=== PATIENT | female | born 1995 | race African-American/Black ===

== ENCOUNTER 2021-03-19 12:59 | Inpatient (IN) ==
[2021-03-19 13:53] LABS: Bilirubin,Urine Negative (Negative); Blood, Urine Large mg/dL (Negative); Glucose,Urine (UA) Negative (Negative); Hyaline Casts,Urine 4 /LPF (0-3); Ketones,Urine Negative (Negative); Mucus,Urine Occasional /LPF (Occasional); Nitrite,Urine Negative (Negative); Protein,Urine >=500 MG/DL; RBC,Urine 95 /HPF (0-4); Squamous Epithelial Cell,Urine Occasional /HPF (0-10); Urine Appearance Slightly Hazy (Clear); Urine Color Yellow (Yellow); Urine Specific Gravity 1.013 (1.001-1.035); Urine Urobilinogen < 2.0 EU/DL (0.2-1.0)
[2021-03-19] MEDS ORDERED: SODIUM CHLORIDE 0.9% 1,000 ML IV STA (13:56)
[2021-03-19] MEDS ORDERED: ONDANSETRON 4 MG/2 ML VIAL IV STA (13:56)
[2021-03-19 14:05] LABS: Basophils % 0.2 % (0.0-0.8); Eosinophils % 0.4 % (0.00-10.9); Hematocrit 21.8 VOL% (35.7-47.0); Immature Granulocytes % 0.6 %; Immature Granulocytes Absolute 0.03 #; Lymphocytes # 0.9 10*3/uL (1.4-4.0); Lymphocytes % 18.6 % (21.3-54.2); Mean Corpuscular HGB Conc 31.7 GM/DL (32-36); Mean Corpuscular Volume 84.8 FL (87-102); Monocytes % 8.4 % (1.7-12.7); Neutrophils % 71.8 % (38.7-73.9); Red Blood Count 2.57 MC/CUMM (3.8-5.5); Red Cell Distribution Width 17.1 % (9.3-17.3); White Blood Count 4.6 T/CUMM (4-12)
[2021-03-19 14:32] LABS: Alanine Aminotransferase < 9 U/L (13-56); Alkaline Phosphatase 56 U/L (45-117); Aspartate Amino Transferase 23 U/L (0-37); Bilirubin,Total < 0.39 MG/DL (0.20-1.00); Blood Urea Nitrogen 36 MG/DL (7-18); Calcium 7.1 MG/DL (8.5-10.1); Carbon Dioxide 19 MMOL/L (21-32); Estimated Glom Filtration Rate 23 ML/MIN; Glucose 73 MG/DL (74-106); Osmolality,Calculated 289.1 MOS/KG (273-304); Potassium 4.7 MMOL/L (3.5-5.1); Sodium 142 MMOL/L (136-145); Total Protein 5.4 G/DL (6.4-8.2)
[2021-03-19 14:42] LABS: Hemoglobin 6.9 GM/DL (12.0-16.0); Platelet Count 61 T/CUMM (130-400)
[2021-03-19 14:50] LABS: Hypochromasia 1+; Lymphocytes 17 % (20-55); Microcytosis 1+; Segmented Neutrophils 73 % (50-85); Total Cells Counted 100
[2021-03-19 14:51] LABS: Anisocytosis 1+; Elliptocytes Few; Schistocytes Few
[2021-03-19 14:52] LABS: Platelet Estimate Decreased
[2021-03-19 15:26] LABS: Sedimentation Rate-Westergren 133 MM/HR (0-20)
[2021-03-19] MEDS ORDERED: SODIUM CHLORIDE 0.9% 1,000 ML IV SCH (16:00)
[2021-03-19] MEDS ORDERED: DEXTROSE 5% NACL 0.45% 1,000 ML IV SCH (16:30)
[2021-03-19 16:35] LABS: Basophils % 0.3 % (0.0-0.8); Eosinophils % 0.3 % (0.00-10.9); Hematocrit 21.2 VOL% (35.7-47.0); Immature Granulocytes % 0.8 %; Immature Granulocytes Absolute 0.03 #; Lymphocytes # 0.8 10*3/uL (1.4-4.0); Lymphocytes % 22.2 % (21.3-54.2); Mean Corpuscular HGB Conc 30.7 GM/DL (32-36); Mean Corpuscular Volume 86.2 FL (87-102); Monocytes % 8.6 % (1.7-12.7); Neutrophils % 67.8 % (38.7-73.9); Red Blood Count 2.46 MC/CUMM (3.8-5.5); Red Cell Distribution Width 16.8 % (9.3-17.3); White Blood Count 3.6 T/CUMM (4-12)
[2021-03-19 16:38] LABS: Hemoglobin 6.5 GM/DL (12.0-16.0); Platelet Count 60 T/CUMM (130-400)
[2021-03-19 16:43] LABS: PT Patient Result 10.8 SECS (10.5-12.0); Partial Thromboplastin Time 26.2 SECS (23.9-33.8)
[2021-03-19 16:54] LABS: Lymphocytes 20 % (20-55); Segmented Neutrophils 69 % (50-85); Total Cells Counted 100
[2021-03-19 16:55] LABS: Anisocytosis Slight; Elliptocytes Few; Hypochromasia 1+; Microcytosis 1+; Platelet Estimate Decreased; Schistocytes Few
[2021-03-19 17:04] LABS: Folate 10.42 NG/ML (5.38-24.0); Vitamin B12 1746 PG/ML (211-911)
[2021-03-19 17:38] LABS: Sedimentation Rate-Westergren 131 MM/HR (0-20)
[2021-03-19 17:46] LABS: Thyroid Stimulating Hormone 1.84 uIU/ml (0.358-3.74)
[2021-03-19] MEDS: LOSARTAN 50 MG TABLET PO SCH (18:11)
[2021-03-19] MEDS: methylPREDNISolone SOD SUC 40 MG/1 ML VIAL IV SCH (18:11)
[2021-03-19] MEDS: SODIUM CHLORIDE 0.9% 1,000 ML IV SCH (18:26)
[2021-03-19] MEDS: ONDANSETRON 4 MG/2 ML VIAL IV PRN (21:34)
[2021-03-19] MEDS ORDERED: SODIUM CHLORIDE 0.9% 1,000 ML IV PRN (21:41)
[2021-03-19] MEDS: ACETAMINOPHEN 325 MG TABLET PO PRN (22:55)
[2021-03-20] MEDS ORDERED: diphenhydrAMINE CAP 25 MG CAPSULE PO PRN (00:09)
[2021-03-20] MEDS: ONDANSETRON 4 MG/2 ML VIAL IV PRN (04:45)
[2021-03-20] MEDS: SODIUM CHLORIDE 0.9% 1,000 ML IV SCH ×2 (05:10→14:18)
[2021-03-20 09:43] LABS: Hematocrit 26.5 VOL% (35.7-47.0); Immature Granulocytes % 0.5 %; Immature Granulocytes Absolute 0.02 #; Lymphocytes % 23.2 % (21.3-54.2); Mean Corpuscular HGB Conc 32.1 GM/DL (32-36); Mean Corpuscular Volume 86.6 FL (87-102); Monocytes % 10.7 % (1.7-12.7); Neutrophils % 65.6 % (38.7-73.9); Red Cell Distribution Width 16.6 % (9.3-17.3); White Blood Count 4.4 T/CUMM (4-12)
[2021-03-20 09:46] LABS: Hemoglobin A1 (Alkaline) 97.6 % (96.5-98.5); Hemoglobin A2 (Alkaline) 2.4 % (1.5-3.5)
[2021-03-20 09:53] LABS: Hemoglobin 8.5 GM/DL (12.0-16.0); Platelet Count 45 T/CUMM (130-400); Red Blood Count 3.06 MC/CUMM (3.8-5.5)
[2021-03-20 10:00] LABS: Alanine Aminotransferase < 9 U/L (13-56); Albumin 1.7 G/DL (3.4-5.0); Alkaline Phosphatase 51 U/L (45-117); Aspartate Amino Transferase 19 U/L (0-37); Bilirubin,Total < 0.39 MG/DL (0.20-1.00); Blood Urea Nitrogen 37 MG/DL (7-18); Calcium 7.3 MG/DL (8.5-10.1); Carbon Dioxide 15 MMOL/L (21-32); Estimated Glom Filtration Rate 23 ML/MIN; Glucose 87 MG/DL (74-106); Osmolality,Calculated 288.3 MOS/KG (273-304); Potassium 4.9 MMOL/L (3.5-5.1); Sodium 141 MMOL/L (136-145); Total Protein 5.5 G/DL (6.4-8.2)
[2021-03-20 10:06] LABS: Lymphocytes 22 % (20-55); Platelet Estimate Decreased; Segmented Neutrophils 72 % (50-85); Total Cells Counted 100
[2021-03-20] MEDS: methylPREDNISolone SOD SUC 40 MG/1 ML VIAL IV SCH (10:06)
[2021-03-20] MEDS: PANTOPRAZOLE 40 MG VIAL IV SCH ×2 (10:06→23:04)
[2021-03-20] MEDS: LOSARTAN 50 MG TABLET PO SCH (10:06)
[2021-03-20 10:07] LABS: Hypochromasia 1+; Microcytosis 1+
[2021-03-20] MEDS ORDERED: GLUCAGON 1 MG VIAL IM PRN (12:42)
[2021-03-20] MEDS ORDERED: DEXTROSE 50% 25 GM/50 ML VIAL IV PRN (12:42)
[2021-03-20] MEDS ORDERED: LOSARTAN 50 MG TABLET PO STA (12:54)
[2021-03-20] MEDS ORDERED: amLODIPine 5 MG TABLET PO SCH (15:00)
[2021-03-20] MEDS ORDERED: amLODIPine 5 MG TABLET PO STA (16:21)
[2021-03-20 17:09] LABS: Microalbum/Creat Ratio Random 4080.2 RATIO (0-30)
[2021-03-20] MEDS: methylPREDNISolone SOD SUC INJ 1,000 MG in SODIUM CHLORIDE 0.9% 100 ML IV SCH (17:20)
[2021-03-20 17:36] LABS: Total Protein 6.1 G/DL (6.4-8.2)
[2021-03-20 17:49] LABS: Vitamin B12 1999 PG/ML (211-911)
[2021-03-20] MEDS: INSULIN LISPRO 100 UNIT/ML SUBCUT SCH ×2 (18:02→23:03)
[2021-03-21] MEDS: SODIUM CHLORIDE 0.9% 1,000 ML IV SCH ×2 (04:00→10:01)
[2021-03-21] MEDS: ONDANSETRON 4 MG/2 ML VIAL IV PRN (05:00)
[2021-03-21 05:17] LABS: Basophils % 0.2 % (0.0-0.8); Hematocrit 28.6 VOL% (35.7-47.0); Hemoglobin 9.4 GM/DL (12.0-16.0); Immature Granulocytes % 0.5 %; Immature Granulocytes Absolute 0.03 #; Lymphocytes % 14.8 % (21.3-54.2); Mean Corpuscular HGB Conc 32.9 GM/DL (32-36); Mean Corpuscular Volume 86.1 FL (87-102); Monocytes % 2.5 % (1.7-12.7); Platelet Count 57 T/CUMM (130-400); Red Blood Count 3.32 MC/CUMM (3.8-5.5); Red Cell Distribution Width 16.1 % (9.3-17.3); White Blood Count 6.4 T/CUMM (4-12)
[2021-03-21 05:42] LABS: % Iron Saturation 42.9 % (18-50)
[2021-03-21 05:46] LABS: Platelet Estimate Decreased
[2021-03-21 07:08] LABS: Calcium 7.3 MG/DL (8.5-10.1); Ferritin 149.6 ng/mL (8-252); Osmolality,Calculated 293.3 MOS/KG (273-304); Potassium 5.8 MMOL/L (3.5-5.1)
[2021-03-21] MEDS: INSULIN LISPRO 100 UNIT/ML SUBCUT SCH ×4 (07:50→21:50)
[2021-03-21 08:19] LABS: Total Protein (Chem) 6.1 G/DL (6.4-8.3)
[2021-03-21 08:54] LABS: Albumin (SPE) 2.9 G/DL (3.2-5.3); Albumin (SPE) Rel % 46.9 %; Alpha 1 (SPE) 0.3 G/DL (0.1-0.4); Alpha 1 (SPE) Rel % 4.8 %; Alpha 2 (SPE) 0.9 G/DL (0.4-1.0); Alpha 2 (SPE) Rel % 15.3 %; Beta (SPE) 0.6 G/DL (0.5-1.1); Beta (SPE) Rel % 10.5 %; Gamma (SPE) 1.4 G/DL (0.7-1.7); Gamma (SPE) Rel % 22.5 %
[2021-03-21] MEDS ORDERED: LIDOCAINE 2% 5 ML VIAL ONE (08:54)
[2021-03-21] MEDS ORDERED: propofoL 200 MG/20 ML VIAL IV ONE (08:54)
[2021-03-21] MEDS: amLODIPine 10 MG TABLET PO SCH (10:00)
[2021-03-21] MEDS: methylPREDNISolone SOD SUC INJ 1,000 MG in SODIUM CHLORIDE 0.9% 100 ML IV SCH (10:01)
[2021-03-21] MEDS: PANTOPRAZOLE 40 MG VIAL IV SCH (10:17)
[2021-03-21] MEDS: ONDANSETRON 4 MG/2 ML VIAL IV SCH ×2 (15:31→21:45)
[2021-03-21] MEDS: ACETAMINOPHEN 325 MG TABLET PO PRN (15:31)
[2021-03-21] MEDS ORDERED: CYCLOPHOSPHAMIDE INJ 500 MG in SODIUM CHLORIDE 0.9% 250 ML IV ONE (16:00)
[2021-03-21] MEDS ORDERED: SULFAMETHOX/TRIMETHOPRIM 400-80 MG TABLET PO SCH (17:00)
[2021-03-21] MEDS: SODIUM CHLORIDE 0.9% IV SCH ×2 (18:02→21:46)
[2021-03-21] MEDS: MESNA IV SCH ×2 (18:02→21:46)
[2021-03-21] MEDS: SULFAMETHOX/TRIMETHOPRIM 800-160 MG TABLET PO SCH (18:24)
[2021-03-21] MEDS: PANTOPRAZOLE 40 MG TABLET PO SCH (18:24)
[2021-03-21] MEDS: SODIUM BICARB INJ 150 MEQ in STERILE WATER INJ 1,000 ML IV SCH (18:24)
[2021-03-22] MEDS: ONDANSETRON 4 MG/2 ML VIAL IV SCH (02:37)
[2021-03-22] MEDS: SODIUM CHLORIDE 0.9% IV SCH (02:37)
[2021-03-22] MEDS: MESNA IV SCH (02:37)
[2021-03-22 08:29] LABS: Basophils % 0.1 % (0.0-0.8); Hematocrit 26.1 VOL% (35.7-47.0); Hemoglobin 8.7 GM/DL (12.0-16.0); Immature Granulocytes % 0.7 %; Immature Granulocytes Absolute 0.09 #; Lymphocytes # 1.4 10*3/uL (1.4-4.0); Lymphocytes % 10.2 % (21.3-54.2); Mean Corpuscular HGB Conc 33.3 GM/DL (32-36); Mean Corpuscular Volume 85.6 FL (87-102); Monocytes % 6.6 % (1.7-12.7); Neutrophils % 82.4 % (38.7-73.9); Platelet Count 67 T/CUMM (130-400); Red Blood Count 3.05 MC/CUMM (3.8-5.5); Red Cell Distribution Width 16.7 % (9.3-17.3); White Blood Count 13.7 T/CUMM (4-12)
[2021-03-22 08:47] LABS: Platelet Estimate Decreased
[2021-03-22 08:48] LABS: Hypochromasia 1+; Microcytosis 1+; Ovalocytes Slight
[2021-03-22 08:54] LABS: Calcium 7.3 MG/DL (8.5-10.1); Osmolality,Calculated 298.1 MOS/KG (273-304); Potassium 5.2 MMOL/L (3.5-5.1)
[2021-03-22] MEDS: amLODIPine 10 MG TABLET PO SCH (09:12)
[2021-03-22] MEDS: SULFAMETHOX/TRIMETHOPRIM 800-160 MG TABLET PO SCH (09:12)
[2021-03-22] MEDS: PANTOPRAZOLE 40 MG TABLET PO SCH ×2 (09:12→17:37)
[2021-03-22] MEDS: methylPREDNISolone SOD SUC INJ 1,000 MG in SODIUM CHLORIDE 0.9% 100 ML IV SCH (09:14)
[2021-03-22] MEDS: INSULIN LISPRO 100 UNIT/ML SUBCUT SCH ×4 (09:15→21:40)
[2021-03-22] MEDS: ONDANSETRON 4 MG/2 ML VIAL IV PRN ×3 (09:15→22:27)
[2021-03-22] MEDS: SODIUM BICARB INJ 150 MEQ in STERILE WATER INJ 1,000 ML IV SCH (11:27)
[2021-03-23] MEDS: SODIUM BICARB INJ 150 MEQ in STERILE WATER INJ 1,000 ML IV SCH ×2 (01:02→12:51)
[2021-03-23] MEDS: PANTOPRAZOLE 40 MG TABLET PO SCH ×2 (06:26→17:48)
[2021-03-23 08:07] LABS: Hematocrit 25.3 VOL% (35.7-47.0); Hemoglobin 8.4 GM/DL (12.0-16.0); Immature Granulocytes Absolute 0.12 #; Lymphocytes # 1.3 10*3/uL (1.4-4.0); Lymphocytes % 10.6 % (21.3-54.2); Mean Corpuscular HGB Conc 33.2 GM/DL (32-36); Mean Corpuscular Volume 83.5 FL (87-102); Monocytes % 7.5 % (1.7-12.7); Neutrophils % 80.9 % (38.7-73.9); Platelet Count 83 T/CUMM (130-400); Red Blood Count 3.03 MC/CUMM (3.8-5.5); Red Cell Distribution Width 16.9 % (9.3-17.3); White Blood Count 12.5 T/CUMM (4-12)
[2021-03-23 08:29] LABS: Hypochromasia 1+; Microcytosis 1+; Platelet Estimate Decreased
[2021-03-23 08:42] LABS: Calcium 7.4 MG/DL (8.5-10.1); Potassium 5.1 MMOL/L (3.5-5.1)
[2021-03-23] MEDS: LORazepam 1 MG TABLET PO PRN (09:23)
[2021-03-23] MEDS: amLODIPine 10 MG TABLET PO SCH (09:23)
[2021-03-23] MEDS: SULFAMETHOX/TRIMETHOPRIM 800-160 MG TABLET PO SCH (09:23)
[2021-03-23] MEDS: INSULIN LISPRO 100 UNIT/ML SUBCUT SCH ×4 (09:30→21:26)
[2021-03-23] MEDS: SODIUM BICARBONATE 650 MG TABLET PO SCH ×2 (15:20→21:26)
[2021-03-23] MEDS: HYDROXYCHLOROQUINE 200 MG TABLET PO SCH (21:26)
[2021-03-23] MEDS: ONDANSETRON 4 MG/2 ML VIAL IV PRN (21:26)
[2021-03-24] MEDS: SODIUM BICARB INJ 150 MEQ in STERILE WATER INJ 1,000 ML IV SCH ×2 (00:47→12:24)
[2021-03-24] MEDS: ONDANSETRON 4 MG/2 ML VIAL IV PRN ×3 (04:09→17:23)
[2021-03-24] MEDS: LORazepam 1 MG TABLET PO PRN (04:40)
[2021-03-24 05:26] LABS: Hemoglobin 7.5 GM/DL (12.0-16.0); Immature Granulocytes Absolute 0.08 #; Lymphocytes # 1.2 10*3/uL (1.4-4.0); Lymphocytes % 15.8 % (21.3-54.2); Mean Corpuscular HGB Conc 32.6 GM/DL (32-36); Mean Corpuscular Volume 85.8 FL (87-102); Monocytes % 9.9 % (1.7-12.7); Neutrophils % 73.3 % (38.7-73.9); Platelet Count 66 T/CUMM (130-400); Red Blood Count 2.68 MC/CUMM (3.8-5.5); Red Cell Distribution Width 16.4 % (9.3-17.3); White Blood Count 7.8 T/CUMM (4-12)
[2021-03-24 05:31] LABS: Calcium 7.2 MG/DL (8.5-10.1); Osmolality,Calculated 304.8 MOS/KG (273-304)
[2021-03-24] MEDS: PANTOPRAZOLE 40 MG TABLET PO SCH ×2 (06:01→17:56)
[2021-03-24 06:14] LABS: Hypochromasia 1+; Microcytosis 1+; Ovalocytes Few
[2021-03-24 06:15] LABS: Platelet Estimate Decreased
[2021-03-24] MEDS: INSULIN LISPRO 100 UNIT/ML SUBCUT SCH ×4 (07:27→21:14)
[2021-03-24] MEDS: SODIUM BICARBONATE 650 MG TABLET PO SCH ×3 (08:17→22:52)
[2021-03-24] MEDS: HYDROXYCHLOROQUINE 200 MG TABLET PO SCH (08:17)
[2021-03-24] MEDS: amLODIPine 10 MG TABLET PO SCH (08:17)
[2021-03-24] MEDS: SULFAMETHOX/TRIMETHOPRIM 800-160 MG TABLET PO SCH (08:18)
[2021-03-24] MEDS: PROMETHAZINE 25 MG TABLET PO PRN ×2 (09:16→15:12)
[2021-03-24] MEDS ORDERED: predniSONE 10 MG TABLET PO SCH (21:00)
[2021-03-24] MEDS: methylPREDNISolone SOD SUC 40 MG/1 ML VIAL IV SCH (21:12)
[2021-03-25] MEDS: ONDANSETRON 4 MG/2 ML VIAL IV PRN (00:18)
[2021-03-25] MEDS: SODIUM BICARB INJ 150 MEQ in STERILE WATER INJ 1,000 ML IV SCH ×3 (01:11→17:31)
[2021-03-25] MEDS: PANTOPRAZOLE 40 MG TABLET PO SCH ×2 (05:32→17:30)
[2021-03-25 06:45] LABS: Hematocrit 23.9 VOL% (35.7-47.0); Hemoglobin 7.9 GM/DL (12.0-16.0); Immature Granulocytes % 1.6 %; Immature Granulocytes Absolute 0.11 #; Lymphocytes # 0.5 10*3/uL (1.4-4.0); Lymphocytes % 7.5 % (21.3-54.2); Mean Corpuscular HGB Conc 33.1 GM/DL (32-36); Mean Corpuscular Volume 84.2 FL (87-102); Neutrophils % 85.9 % (38.7-73.9); Platelet Count 78 T/CUMM (130-400); Red Blood Count 2.84 MC/CUMM (3.8-5.5); Red Cell Distribution Width 15.9 % (9.3-17.3); White Blood Count 7.1 T/CUMM (4-12)
[2021-03-25 07:09] LABS: Osmolality,Calculated 300.4 MOS/KG (273-304); Potassium 4.9 MMOL/L (3.5-5.1)
[2021-03-25] MEDS: INSULIN LISPRO 100 UNIT/ML SUBCUT SCH ×3 (07:45→17:25)
[2021-03-25 08:52] LABS: Acanthocytes Few; Anisocytosis 2+; Helmet Cells Few; Platelet Estimate Decreased; Poikilocytosis 1+
[2021-03-25] MEDS: methylPREDNISolone SOD SUC 40 MG/1 ML VIAL IV SCH (09:47)
[2021-03-25] MEDS: SODIUM BICARBONATE 650 MG TABLET PO SCH ×2 (09:48→17:25)
[2021-03-25] MEDS: SULFAMETHOX/TRIMETHOPRIM 800-160 MG TABLET PO SCH (09:49)
[2021-03-25] MEDS: amLODIPine 10 MG TABLET PO SCH (09:49)
[2021-03-25 11:31] VITALS: BP 147/81
[2021-03-26] MEDS ORDERED: predniSONE 20 MG TABLET PO SCH (09:00)
== END 2021-03-25 17:48 | disposition left against medical advice (07) | DRG 546 ==
LOC: N.5E 12:59 → N.ED 12:59 → SUATTDRO 15:40 → N.5E 17:20 → SUATTDRO 03-20 13:57
PROVIDERS: ADMIT Nurse Practitioner Family; ATTEND Hospitalist

== ENCOUNTER 2021-03-28 10:09 | Inpatient (IN) ==
[2021-03-28] MEDS ORDERED: ONDANSETRON 4 MG/2 ML VIAL IV STA (12:36)
[2021-03-28] MEDS ORDERED: SODIUM CHLORIDE 0.9% 1,000 ML IV STA (12:36)
[2021-03-28 13:24] LABS: Basophils % 0.1 % (0.0-0.8); Eosinophils # 0.1 10*3/uL (0.0-0.87); Eosinophils % 0.7 % (0.00-10.9); Hematocrit 22.5 VOL% (35.7-47.0); Hemoglobin 7.4 GM/DL (12.0-16.0); Immature Granulocytes % 3.5 %; Immature Granulocytes Absolute 0.36 #; Lymphocytes # 1.1 10*3/uL (1.4-4.0); Lymphocytes % 10.6 % (21.3-54.2); Mean Corpuscular HGB Conc 32.9 GM/DL (32-36); Mean Corpuscular Volume 85.9 FL (87-102); Mean Platelet Volume 10.5 FL (9.6-12.0); Monocytes % 14.1 % (1.7-12.7); Platelet Count 112 T/CUMM (130-400); Red Blood Count 2.62 MC/CUMM (3.8-5.5); Red Cell Distribution Width 15.2 % (9.3-17.3); White Blood Count 10.3 T/CUMM (4-12)
[2021-03-28 13:44] LABS: Bilirubin,Urine Negative (Negative); Blood, Urine Large mg/dL (Negative); Glucose,Urine (UA) Negative (Negative); Ketones,Urine Negative (Negative); Nitrite,Urine Negative (Negative); Protein,Urine >=500 MG/DL; RBC,Urine 67 /HPF (0-4); Squamous Epithelial Cell,Urine Occasional /HPF (0-10); Urine Appearance Slightly Hazy (Clear); Urine Color Yellow (Yellow); Urine Specific Gravity 1.013 (1.001-1.035); Urine Urobilinogen < 2.0 EU/DL (0.2-1.0)
[2021-03-28 13:51] LABS: Alanine Aminotransferase 9 U/L (13-56); Albumin 1.9 G/DL (3.4-5.0); Alkaline Phosphatase 47 U/L (45-117); Aspartate Amino Transferase 15 U/L (0-37); Bilirubin,Total < 0.39 MG/DL (0.20-1.00); Blood Urea Nitrogen 68 MG/DL (7-18); Calcium 7.2 MG/DL (8.5-10.1); Carbon Dioxide 29 MMOL/L (21-32); Estimated Glom Filtration Rate 11 ML/MIN; Glucose 73 MG/DL (74-106); Osmolality,Calculated 295.5 MOS/KG (273-304); Potassium 4.4 MMOL/L (3.5-5.1); Sodium 139 MMOL/L (136-145)
[2021-03-28] MEDS ORDERED: DEXTROSE 50% 25 GM/50 ML VIAL IV PRN (14:49)
[2021-03-28] MEDS ORDERED: GLUCAGON 1 MG VIAL IM PRN (14:49)
[2021-03-28 15:16] LABS: INR 0.9; PT Patient Result 10.5 SECS (10.5-12.0); Partial Thromboplastin Time 22.1 SECS (23.9-33.8)
[2021-03-28 16:34] LABS: Complement C3 54.7 MG/DL (90.0-180.0)
[2021-03-28] MEDS: ACETAMINOPHEN 325 MG TABLET PO PRN (19:46)
[2021-03-28] MEDS: methylPREDNISolone SOD SUC 125 MG/2 ML VIAL IV SCH (21:16)
[2021-03-29] MEDS: methylPREDNISolone SOD SUC 125 MG/2 ML VIAL IV SCH ×3 (06:05→20:17)
[2021-03-29 06:40] LABS: Basophils % 0.1 % (0.0-0.8); Hemoglobin 7.5 GM/DL (12.0-16.0); Immature Granulocytes % 2.1 %; Immature Granulocytes Absolute 0.17 #; Lymphocytes # 0.5 10*3/uL (1.4-4.0); Lymphocytes % 6.4 % (21.3-54.2); Mean Corpuscular HGB Conc 32.6 GM/DL (32-36); Mean Corpuscular Volume 85.8 FL (87-102); Monocytes % 5.1 % (1.7-12.7); Neutrophils % 86.3 % (38.7-73.9); Platelet Count 107 T/CUMM (130-400); Red Blood Count 2.68 MC/CUMM (3.8-5.5); White Blood Count 7.9 T/CUMM (4-12)
[2021-03-29 06:43] LABS: PT Patient Result 10.7 SECS (10.5-12.0); Partial Thromboplastin Time 23.6 SECS (23.9-33.8)
[2021-03-29 07:05] LABS: Platelet Estimate Adequate
[2021-03-29 07:06] LABS: Anisocytosis 2+; Poikilocytosis Slight; Tear Drop Cells Few
[2021-03-29 07:07] LABS: Ovalocytes Few
[2021-03-29 07:32] LABS: Sedimentation Rate-Westergren 111 MM/HR (0-20)
[2021-03-29] MEDS ORDERED: cefTRIAXone 1,000 MG in SODIUM CHLORIDE 0.9% 100 ML IV ONE (07:49)
[2021-03-29 08:02] LABS: Calcium 7.3 MG/DL (8.5-10.1); Osmolality,Calculated 294.7 MOS/KG (273-304); Potassium 5.9 MMOL/L (3.5-5.1)
[2021-03-29] MEDS ORDERED: SODIUM ZIRCONIUM CYCLOSILICATE 10 GM PACK PO SCH ×3 (09:00→21:00)
[2021-03-29] MEDS: ONDANSETRON 4 MG/2 ML VIAL IV PRN (12:48)
[2021-03-29] MEDS: hydrALAZINE 20 MG/1 ML VIAL IV PRN ×2 (17:07→23:51)
[2021-03-29] MEDS: PANTOPRAZOLE 40 MG TABLET PO SCH (20:18)
[2021-03-29] MEDS: ACETAMINOPHEN 325 MG TABLET PO PRN (20:18)
[2021-03-29] MEDS: CLARITHROMYCIN 500 MG TABLET PO SCH (20:18)
[2021-03-29] MEDS: AMOXICILLIN 500 MG CAPSULE PO SCH (20:18)
[2021-03-30] MEDS: ACETAMINOPHEN 325 MG TABLET PO PRN (04:04)
[2021-03-30] MEDS: methylPREDNISolone SOD SUC 125 MG/2 ML VIAL IV SCH ×3 (04:05→19:05)
[2021-03-30] MEDS: ONDANSETRON 4 MG/2 ML VIAL IV PRN (04:10)
[2021-03-30 05:08] LABS: Basophils % 0.1 % (0.0-0.8); Hematocrit 30.1 VOL% (35.7-47.0); Hemoglobin 10.1 GM/DL (12.0-16.0); Immature Granulocytes % 2.1 %; Immature Granulocytes Absolute 0.42 #; Lymphocytes # 1.1 10*3/uL (1.4-4.0); Lymphocytes % 5.3 % (21.3-54.2); Mean Corpuscular HGB Conc 33.6 GM/DL (32-36); Monocytes % 4.2 % (1.7-12.7); Neutrophils % 88.3 % (38.7-73.9); Platelet Count 124 T/CUMM (130-400); Red Blood Count 3.54 MC/CUMM (3.8-5.5); Red Cell Distribution Width 14.1 % (9.3-17.3); White Blood Count 19.7 T/CUMM (4-12)
[2021-03-30 05:16] LABS: PT Patient Result 11.2 SECS (10.5-12.0); Partial Thromboplastin Time 23.3 SECS (23.9-33.8)
[2021-03-30 05:30] LABS: Hypochromasia Slight; Lymphocytes 4 % (20-55); Microcytosis Slight; Platelet Estimate Normal; Segmented Neutrophils 91 % (50-85); Total Cells Counted 100
[2021-03-30 05:42] LABS: Calcium 7.5 MG/DL (8.5-10.1); Osmolality,Calculated 302.5 MOS/KG (273-304); Potassium 5.1 MMOL/L (3.5-5.1)
[2021-03-30] MEDS: CLARITHROMYCIN 500 MG TABLET PO SCH ×2 (11:40→20:24)
[2021-03-30] MEDS: PANTOPRAZOLE 40 MG TABLET PO SCH ×2 (11:40→20:24)
[2021-03-30] MEDS: amLODIPine 10 MG TABLET PO SCH (11:40)
[2021-03-30] MEDS: SODIUM ZIRCONIUM CYCLOSILICATE 10 GM PACK PO SCH (11:40)
[2021-03-30] MEDS: AMOXICILLIN 500 MG CAPSULE PO SCH ×2 (11:41→20:25)
[2021-03-30] MEDS: cefTRIAXone 1,000 MG in SODIUM CHLORIDE 0.9% 100 ML IV SCH (11:41)
[2021-03-30] MEDS ORDERED: PROMETHAZINE 25 MG TABLET PO PRN (12:04)
[2021-03-31] MEDS: methylPREDNISolone SOD SUC 125 MG/2 ML VIAL IV SCH ×3 (02:47→18:08)
[2021-03-31] MEDS: ONDANSETRON 4 MG/2 ML VIAL IV PRN ×2 (04:14→10:02)
[2021-03-31 06:27] LABS: Basophils % 0.1 % (0.0-0.8); Hematocrit 29.3 VOL% (35.7-47.0); Hemoglobin 9.9 GM/DL (12.0-16.0); Immature Granulocytes % 2.1 %; Immature Granulocytes Absolute 0.51 #; Lymphocytes # 0.9 10*3/uL (1.4-4.0); Lymphocytes % 3.5 % (21.3-54.2); Mean Corpuscular HGB Conc 33.8 GM/DL (32-36); Mean Corpuscular Volume 85.7 FL (87-102); Mean Platelet Volume 11.1 FL (9.6-12.0); Monocytes % 2.6 % (1.7-12.7); Neutrophils % 91.7 % (38.7-73.9); Platelet Count 165 T/CUMM (130-400); Red Blood Count 3.42 MC/CUMM (3.8-5.5); Red Cell Distribution Width 14.5 % (9.3-17.3); White Blood Count 24.6 T/CUMM (4-12)
[2021-03-31 06:53] LABS: Hypochromasia 1+; Lymphocytes 6 % (20-55); Microcytosis 1+; Platelet Estimate Adequate; Segmented Neutrophils 92 % (50-85); Total Cells Counted 100
[2021-03-31 07:05] LABS: Calcium 7.9 MG/DL (8.5-10.1); Osmolality,Calculated 302.7 MOS/KG (273-304); Potassium 5.5 MMOL/L (3.5-5.1)
[2021-03-31] MEDS: PANTOPRAZOLE 40 MG TABLET PO SCH ×2 (09:46→20:39)
[2021-03-31] MEDS: CLARITHROMYCIN 500 MG TABLET PO SCH ×2 (09:46→20:36)
[2021-03-31] MEDS: AMOXICILLIN 500 MG CAPSULE PO SCH ×2 (09:46→20:36)
[2021-03-31] MEDS: amLODIPine 10 MG TABLET PO SCH (09:46)
[2021-03-31] MEDS: cefTRIAXone 1,000 MG in SODIUM CHLORIDE 0.9% 100 ML IV SCH (09:47)
[2021-03-31] MEDS: SODIUM ZIRCONIUM CYCLOSILICATE 10 GM PACK PO SCH (09:54)
[2021-03-31] MEDS: medroxyPROGESTERone 10 MG TABLET PO SCH (12:04)
[2021-03-31] MEDS: POLYETHYLENE GLYCOL POWDER 17 GM PACK PO SCH ×2 (16:04→20:37)
[2021-03-31] MEDS: SENNA 8.6 MG TABLET PO SCH (20:36)
[2021-03-31] MEDS: DOCUSATE SODIUM 100 MG CAPSULE PO SCH (20:36)
[2021-03-31] MEDS ORDERED: SODIUM ZIRCONIUM CYCLOSILICATE 10 GM PACK PO SCH (21:00)
[2021-04-01] MEDS: methylPREDNISolone SOD SUC 125 MG/2 ML VIAL IV SCH ×3 (02:03→17:37)
[2021-04-01 04:55] LABS: Basophils % 0.2 % (0.0-0.8); Hematocrit 27.5 VOL% (35.7-47.0); Hemoglobin 9.4 GM/DL (12.0-16.0); Immature Granulocytes % 1.6 %; Immature Granulocytes Absolute 0.39 #; Lymphocytes # 0.9 10*3/uL (1.4-4.0); Lymphocytes % 3.4 % (21.3-54.2); Mean Corpuscular HGB Conc 34.2 GM/DL (32-36); Mean Corpuscular Volume 84.9 FL (87-102); Mean Platelet Volume 9.2 FL (9.6-12.0); Monocytes % 2.3 % (1.7-12.7); Neutrophils % 92.5 % (38.7-73.9); Platelet Count 152 T/CUMM (130-400); Red Blood Count 3.24 MC/CUMM (3.8-5.5); White Blood Count 25.1 T/CUMM (4-12)
[2021-04-01 05:18] LABS: Calcium 7.9 MG/DL (8.5-10.1); Osmolality,Calculated 305.7 MOS/KG (273-304); Potassium 5.3 MMOL/L (3.5-5.1)
[2021-04-01 05:42] LABS: Band Neutrophils 1 % (0-10); Lymphocytes 2 % (20-55); Platelet Estimate Normal; Segmented Neutrophils 95 % (50-85); Total Cells Counted 100
[2021-04-01] MEDS ORDERED: SODIUM ZIRCONIUM CYCLOSILICATE 10 GM PACK PO SCH (09:00)
[2021-04-01] MEDS: cefTRIAXone 1,000 MG in SODIUM CHLORIDE 0.9% 100 ML IV SCH (09:52)
[2021-04-01] MEDS: AMOXICILLIN 500 MG CAPSULE PO SCH ×2 (09:52→21:20)
[2021-04-01] MEDS: SODIUM ZIRCONIUM CYCLOSILICATE 10 GM PACK PO SCH ×2 (09:53→21:20)
[2021-04-01] MEDS: CLARITHROMYCIN 500 MG TABLET PO SCH ×2 (09:53→21:20)
[2021-04-01] MEDS: PANTOPRAZOLE 40 MG TABLET PO SCH ×2 (09:53→21:20)
[2021-04-01] MEDS: medroxyPROGESTERone 10 MG TABLET PO SCH (09:53)
[2021-04-01] MEDS: amLODIPine 10 MG TABLET PO SCH (09:53)
[2021-04-01] MEDS: ONDANSETRON 4 MG/2 ML VIAL IV PRN (09:54)
[2021-04-01] MEDS: DOCUSATE SODIUM 100 MG CAPSULE PO SCH ×2 (10:05→21:21)
[2021-04-01] MEDS: POLYETHYLENE GLYCOL POWDER 17 GM PACK PO SCH ×2 (10:05→21:21)
[2021-04-01] MEDS: SENNA 8.6 MG TABLET PO SCH (21:21)
[2021-04-02] MEDS: methylPREDNISolone SOD SUC 125 MG/2 ML VIAL IV SCH ×3 (05:13→17:54)
[2021-04-02] MEDS: ONDANSETRON 4 MG/2 ML VIAL IV PRN ×2 (05:15→12:01)
[2021-04-02 05:20] LABS: Basophils % 0.2 % (0.0-0.8); Hematocrit 28.8 VOL% (35.7-47.0); Hemoglobin 9.6 GM/DL (12.0-16.0); Immature Granulocytes % 2.1 %; Immature Granulocytes Absolute 0.51 #; Lymphocytes # 0.8 10*3/uL (1.4-4.0); Lymphocytes % 3.2 % (21.3-54.2); Mean Corpuscular HGB Conc 33.3 GM/DL (32-36); Mean Corpuscular Volume 85.2 FL (87-102); Mean Platelet Volume 10.1 FL (9.6-12.0); Neutrophils % 91.5 % (38.7-73.9); Platelet Count 164 T/CUMM (130-400); Red Blood Count 3.38 MC/CUMM (3.8-5.5); White Blood Count 24.3 T/CUMM (4-12)
[2021-04-02 05:35] LABS: Calcium 7.9 MG/DL (8.5-10.1); Potassium 5.1 MMOL/L (3.5-5.1)
[2021-04-02 06:39] LABS: Lymphocytes 4 % (20-55); Segmented Neutrophils 94 % (50-85); Total Cells Counted 100
[2021-04-02 06:40] LABS: Helmet Cells Few; Howell-Jolly Bodies Few; Hypochromasia 2+; Platelet Estimate Normal
[2021-04-02] MEDS: cefTRIAXone 1,000 MG in SODIUM CHLORIDE 0.9% 100 ML IV SCH (09:13)
[2021-04-02] MEDS: SODIUM ZIRCONIUM CYCLOSILICATE 10 GM PACK PO SCH ×2 (09:15→20:22)
[2021-04-02] MEDS: PANTOPRAZOLE 40 MG TABLET PO SCH ×2 (09:16→20:22)
[2021-04-02] MEDS: CLARITHROMYCIN 500 MG TABLET PO SCH ×2 (09:16→20:22)
[2021-04-02] MEDS: amLODIPine 10 MG TABLET PO SCH (09:16)
[2021-04-02] MEDS: medroxyPROGESTERone 10 MG TABLET PO SCH (09:16)
[2021-04-02] MEDS: AMOXICILLIN 500 MG CAPSULE PO SCH ×2 (09:25→20:22)
[2021-04-02] MEDS: DOCUSATE SODIUM 100 MG CAPSULE PO SCH ×2 (09:26→20:22)
[2021-04-02] MEDS: POLYETHYLENE GLYCOL POWDER 17 GM PACK PO SCH ×2 (09:47→20:24)
[2021-04-02] MEDS: SENNA 8.6 MG TABLET PO SCH (20:22)
[2021-04-03] MEDS: methylPREDNISolone SOD SUC 125 MG/2 ML VIAL IV SCH ×3 (03:17→19:23)
[2021-04-03 04:19] LABS: Basophils % 0.1 % (0.0-0.8); Hematocrit 28.8 VOL% (35.7-47.0); Immature Granulocytes % 1.9 %; Immature Granulocytes Absolute 0.43 #; Lymphocytes # 0.7 10*3/uL (1.4-4.0); Lymphocytes % 3.1 % (21.3-54.2); Mean Corpuscular HGB Conc 34.7 GM/DL (32-36); Mean Platelet Volume 9.6 FL (9.6-12.0); Monocytes % 2.3 % (1.7-12.7); Neutrophils % 92.6 % (38.7-73.9); Platelet Count 174 T/CUMM (130-400); Red Blood Count 3.47 MC/CUMM (3.8-5.5); Red Cell Distribution Width 13.8 % (9.3-17.3); White Blood Count 22.6 T/CUMM (4-12)
[2021-04-03 04:44] LABS: Lymphocytes 5 % (20-55); Segmented Neutrophils 93 % (50-85); Total Cells Counted 100
[2021-04-03 04:45] LABS: Hypochromasia 1+; Microcytosis 1+; Ovalocytes Few; Platelet Estimate Adequate
[2021-04-03 04:50] LABS: Osmolality,Calculated 313.7 MOS/KG (273-304); Potassium 4.7 MMOL/L (3.5-5.1)
[2021-04-03] MEDS: CLARITHROMYCIN 500 MG TABLET PO SCH ×2 (08:43→20:18)
[2021-04-03] MEDS: AMOXICILLIN 500 MG CAPSULE PO SCH ×2 (08:43→20:18)
[2021-04-03] MEDS: DOCUSATE SODIUM 100 MG CAPSULE PO SCH ×2 (08:43→20:18)
[2021-04-03] MEDS: cefTRIAXone 1,000 MG in SODIUM CHLORIDE 0.9% 100 ML IV SCH (08:43)
[2021-04-03] MEDS: PANTOPRAZOLE 40 MG TABLET PO SCH ×2 (08:43→20:18)
[2021-04-03] MEDS: amLODIPine 10 MG TABLET PO SCH (08:43)
[2021-04-03] MEDS: POLYETHYLENE GLYCOL POWDER 17 GM PACK PO SCH ×2 (08:44→20:18)
[2021-04-03] MEDS: medroxyPROGESTERone 10 MG TABLET PO SCH (08:51)
[2021-04-03] MEDS: ONDANSETRON 4 MG/2 ML VIAL IV PRN (11:30)
[2021-04-03] MEDS: SENNA 8.6 MG TABLET PO SCH (20:18)
[2021-04-04] MEDS: methylPREDNISolone SOD SUC 125 MG/2 ML VIAL IV SCH (02:41)
[2021-04-04 07:06] LABS: Basophils % 0.1 % (0.0-0.8); Immature Granulocytes % 1.2 %; Immature Granulocytes Absolute 0.19 #; Lymphocytes # 0.6 10*3/uL (1.4-4.0); Lymphocytes % 3.6 % (21.3-54.2); Mean Corpuscular HGB Conc 34.6 GM/DL (32-36); Mean Corpuscular Volume 82.3 FL (87-102); Mean Platelet Volume 9.7 FL (9.6-12.0); Monocytes % 2.9 % (1.7-12.7); Neutrophils % 92.2 % (38.7-73.9); Platelet Count 161 T/CUMM (130-400); Red Blood Count 3.16 MC/CUMM (3.8-5.5); Red Cell Distribution Width 13.7 % (9.3-17.3); White Blood Count 16.5 T/CUMM (4-12)
[2021-04-04 07:24] LABS: Calcium 7.7 MG/DL (8.5-10.1); Osmolality,Calculated 309.2 MOS/KG (273-304)
[2021-04-04 07:32] LABS: Lymphocytes 2 % (20-55); Segmented Neutrophils 96 % (50-85); Total Cells Counted 100
[2021-04-04 07:33] LABS: Hypersegmented Neutrophil Few; Platelet Estimate Adequate
[2021-04-04 07:42] LABS: Anisocytosis 1+
[2021-04-04] MEDS ORDERED: ONDANSETRON 4 MG/2 ML VIAL IV SCH (08:30)
[2021-04-04] MEDS ORDERED: SODIUM CHLORIDE 0.9% IV SCH (09:00)
[2021-04-04] MEDS ORDERED: MESNA IV SCH (09:00)
[2021-04-04] MEDS ORDERED: CYCLOPHOSPHAMIDE INJ 500 MG in SODIUM CHLORIDE 0.9% 250 ML IV ONE ×2 (09:00→15:00)
[2021-04-04] MEDS: medroxyPROGESTERone 10 MG TABLET PO SCH (09:50)
[2021-04-04] MEDS: PANTOPRAZOLE 40 MG TABLET PO SCH ×2 (09:50→20:17)
[2021-04-04] MEDS: CLARITHROMYCIN 500 MG TABLET PO SCH ×2 (09:50→20:17)
[2021-04-04] MEDS: amLODIPine 10 MG TABLET PO SCH (09:50)
[2021-04-04] MEDS: AMOXICILLIN 500 MG CAPSULE PO SCH ×2 (09:50→20:17)
[2021-04-04] MEDS: predniSONE 50 MG TABLET PO SCH (09:55)
[2021-04-04] MEDS: POLYETHYLENE GLYCOL POWDER 17 GM PACK PO SCH ×2 (10:12→20:17)
[2021-04-04] MEDS: cefTRIAXone 1,000 MG in SODIUM CHLORIDE 0.9% 100 ML IV SCH (11:03)
[2021-04-04] MEDS: ONDANSETRON 4 MG/2 ML VIAL IV SCH ×3 (14:24→22:04)
[2021-04-04] MEDS: SODIUM CHLORIDE 0.9% IV SCH ×3 (15:23→22:05)
[2021-04-04] MEDS: MESNA IV SCH ×3 (15:23→22:05)
[2021-04-05 05:41] LABS: Basophils % 0.1 % (0.0-0.8); Hematocrit 25.4 VOL% (35.7-47.0); Hemoglobin 8.8 GM/DL (12.0-16.0); Immature Granulocytes Absolute 0.35 #; Lymphocytes # 0.5 10*3/uL (1.4-4.0); Lymphocytes % 3.1 % (21.3-54.2); Mean Corpuscular HGB Conc 34.6 GM/DL (32-36); Mean Corpuscular Volume 81.9 FL (87-102); Mean Platelet Volume 8.8 FL (9.6-12.0); Monocytes % 6.6 % (1.7-12.7); Neutrophils % 88.2 % (38.7-73.9); Platelet Count 141 T/CUMM (130-400); Red Cell Distribution Width 13.8 % (9.3-17.3); White Blood Count 17.5 T/CUMM (4-12)
[2021-04-05 06:05] LABS: Lymphocytes 5 % (20-55); Segmented Neutrophils 92 % (50-85); Total Cells Counted 100
[2021-04-05 06:06] LABS: Acanthocytes Few; Hypochromasia 1+; Microcytosis 1+; Ovalocytes Few
[2021-04-05 06:07] LABS: Platelet Estimate Adequate
[2021-04-05] MEDS: ONDANSETRON 4 MG/2 ML VIAL IV PRN ×2 (08:45→17:39)
[2021-04-05] MEDS: cefTRIAXone 1,000 MG in SODIUM CHLORIDE 0.9% 100 ML IV SCH (09:35)
[2021-04-05] MEDS: AMOXICILLIN 500 MG CAPSULE PO SCH (09:50)
[2021-04-05] MEDS: amLODIPine 10 MG TABLET PO SCH (09:50)
[2021-04-05] MEDS: CLARITHROMYCIN 500 MG TABLET PO SCH (09:50)
[2021-04-05] MEDS: predniSONE 50 MG TABLET PO SCH (09:51)
[2021-04-05] MEDS: PANTOPRAZOLE 40 MG TABLET PO SCH (09:52)
[2021-04-05] MEDS: medroxyPROGESTERone 10 MG TABLET PO SCH (09:53)
[2021-04-05] MEDS: POLYETHYLENE GLYCOL POWDER 17 GM PACK PO SCH (09:55)
[2021-04-05] MEDS: SODIUM BICARBONATE 650 MG TABLET PO SCH ×2 (11:59→15:00)
[2021-04-05] MEDS ORDERED: FUROSEMIDE 80 MG TABLET PO SCH (16:00)
[2021-04-05 17:23] VITALS: BP 133/69
== END 2021-04-05 17:52 | disposition home or self-care (01) | DRG 546 ==
LOC: N.ED 10:09 → N.EDINP 14:49 → SUATTDRO 14:49 → N.EDINP 17:52 → N.4E 18:24
PROVIDERS: ADMIT Internal Medicine; ATTEND Hospitalist

== ENCOUNTER 2021-04-07 20:32 | Inpatient (IN) ==
[2021-04-07] MEDS ORDERED: MORPHINE 2 MG/1 ML SYRINGE IV STA (21:46)
[2021-04-07] MEDS ORDERED: ONDANSETRON 4 MG/2 ML VIAL IV STA (21:46)
[2021-04-07 21:55] LABS: Basophils % 0.1 % (0.0-0.8); Hematocrit 26.5 VOL% (35.7-47.0); Immature Granulocytes % 1.8 %; Immature Granulocytes Absolute 0.38 #; Lymphocytes # 0.9 10*3/uL (1.4-4.0); Lymphocytes % 4.3 % (21.3-54.2); Mean Corpuscular Volume 81.8 FL (87-102); Neutrophils % 83.8 % (38.7-73.9); Platelet Count 93 T/CUMM (130-400); Red Blood Count 3.24 MC/CUMM (3.8-5.5); Red Cell Distribution Width 14.6 % (9.3-17.3); White Blood Count 21.4 T/CUMM (4-12)
[2021-04-07 22:21] LABS: Albumin 2.4 G/DL (3.4-5.0); Bilirubin,Total 0.4 MG/DL (0.20-1.00); Calcium 8.1 MG/DL (8.5-10.1); Osmolality,Calculated 332.3 MOS/KG (273-304); Potassium 4.6 MMOL/L (3.5-5.1); Total Protein 5.3 G/DL (6.4-8.2)
[2021-04-07 22:27] LABS: Hypochromasia Slight; Lymphocytes 2 % (20-55); Microcytosis Slight; Platelet Estimate Decreased; Segmented Neutrophils 91 % (50-85); Total Cells Counted 100
[2021-04-07 22:31] LABS: Bacteria,Urine Occasional /HPF (Few); Bilirubin,Urine Negative (Negative); Blood, Urine Large mg/dL (Negative); Glucose,Urine (UA) Negative (Negative); Ketones,Urine Negative (Negative); Mucus,Urine Occasional /LPF (Occasional); Nitrite,Urine Negative (Negative); Protein,Urine >=500 MG/DL; RBC,Urine 113 /HPF (0-4); Squamous Epithelial Cell,Urine Few /HPF (0-10); Urine Appearance CLOUDY (Clear); Urine Color Yellow (Yellow); Urine Specific Gravity 1.013 (1.001-1.035); Urine Urobilinogen < 2.0 EU/DL (0.2-1.0)
[2021-04-08] MEDS ORDERED: cefTRIAXone 1,000 MG in SODIUM CHLORIDE 0.9% 100 ML IV STA (00:04)
[2021-04-08] MEDS ORDERED: GLUCAGON 1 MG VIAL IM PRN (01:42)
[2021-04-08] MEDS ORDERED: DEXTROSE 50% 25 GM/50 ML VIAL IV PRN (01:42)
[2021-04-08] MEDS ORDERED: SODIUM CHLORIDE 0.9% 1,000 ML IV SCH (02:00)
[2021-04-08] MEDS: MEROPENEM 500 MG in SODIUM CHLORIDE 0.9% 100 ML IV SCH (02:26)
[2021-04-08] MEDS ORDERED: predniSONE 20 MG TABLET PO SCH (02:30)
[2021-04-08] MEDS: HEPARIN 5,000 UNIT/1 ML VIAL SUBCUT SCH ×2 (02:38→14:00)
[2021-04-08] MEDS: hydrALAZINE 20 MG/1 ML VIAL IV PRN (02:53)
[2021-04-08 05:27] LABS: Basophils % 0.1 % (0.0-0.8); Hematocrit 25.1 VOL% (35.7-47.0); Hemoglobin 8.6 GM/DL (12.0-16.0); Immature Granulocytes % 1.8 %; Immature Granulocytes Absolute 0.37 #; Lymphocytes # 1.2 10*3/uL (1.4-4.0); Lymphocytes % 5.9 % (21.3-54.2); Mean Corpuscular HGB Conc 34.3 GM/DL (32-36); Mean Corpuscular Volume 82.8 FL (87-102); Monocytes % 11.4 % (1.7-12.7); Neutrophils % 80.8 % (38.7-73.9); Platelet Count 79 T/CUMM (130-400); Red Blood Count 3.03 MC/CUMM (3.8-5.5); Red Cell Distribution Width 14.6 % (9.3-17.3); White Blood Count 20.4 T/CUMM (4-12)
[2021-04-08] MEDS ORDERED: HYDROCORTISONE 1% CREAM 28 GM TUBE TOP PRN (05:27)
[2021-04-08 05:49] LABS: Calcium 7.8 MG/DL (8.5-10.1); Osmolality,Calculated 327.3 MOS/KG (273-304); Potassium 4.5 MMOL/L (3.5-5.1)
[2021-04-08 05:53] LABS: Lymphocytes 8 % (20-55); Platelet Estimate Decreased; Segmented Neutrophils 86 % (50-85); Total Cells Counted 100
[2021-04-08] MEDS: POLYETHYLENE GLYCOL POWDER 17 GM PACK PO SCH ×2 (06:34→21:05)
[2021-04-08] MEDS: HYDROXYCHLOROQUINE 200 MG TABLET PO SCH ×2 (08:14→21:07)
[2021-04-08] MEDS: LOSARTAN 50 MG TABLET PO SCH (08:14)
[2021-04-08] MEDS: ONDANSETRON 4 MG/2 ML VIAL IV PRN (08:14)
[2021-04-08] MEDS: PANTOPRAZOLE 40 MG TABLET PO SCH ×2 (08:15→21:05)
[2021-04-08] MEDS: FUROSEMIDE 40 MG/4 ML VIAL IV SCH (08:15)
[2021-04-08] MEDS: METOPROLOL TARTRATE 25 MG TABLET PO SCH ×2 (08:15→21:06)
[2021-04-08] MEDS: DOCUSATE SODIUM 100 MG CAPSULE PO SCH ×2 (08:15→21:06)
[2021-04-08] MEDS: predniSONE 20 MG TABLET PO SCH (08:15)
[2021-04-08] MEDS ORDERED: POLYETHYLENE GLYCOL POWDER 17 GM PACK PO SCH (09:00)
[2021-04-08] MEDS: AMOXICILLIN 500 MG CAPSULE PO SCH ×2 (13:59→21:06)
[2021-04-08] MEDS: CLARITHROMYCIN 500 MG TABLET PO SCH ×2 (13:59→21:05)
[2021-04-08] MEDS ORDERED: BISACODYL 10 MG SUPP RECTAL PRN (15:21)
[2021-04-08] MEDS: amLODIPine 10 MG TABLET PO SCH (16:08)
[2021-04-08] MEDS: diphenhydrAMINE CAP 25 MG CAPSULE PO PRN (18:48)
[2021-04-08] MEDS: SODIUM BICARBONATE 650 MG TABLET PO SCH (21:06)
[2021-04-09] MEDS: HEPARIN 5,000 UNIT/1 ML VIAL SUBCUT SCH ×2 (02:53→14:00)
[2021-04-09] MEDS: MEROPENEM 500 MG in SODIUM CHLORIDE 0.9% 100 ML IV SCH (02:54)
[2021-04-09] MEDS: ONDANSETRON 4 MG/2 ML VIAL IV PRN (07:33)
[2021-04-09] MEDS: LOSARTAN 50 MG TABLET PO SCH (08:11)
[2021-04-09] MEDS: DOCUSATE SODIUM 100 MG CAPSULE PO SCH ×2 (08:11→20:30)
[2021-04-09] MEDS: predniSONE 20 MG TABLET PO SCH (08:11)
[2021-04-09] MEDS: CLARITHROMYCIN 500 MG TABLET PO SCH ×2 (08:11→20:30)
[2021-04-09] MEDS: PANTOPRAZOLE 40 MG TABLET PO SCH ×2 (08:11→20:30)
[2021-04-09] MEDS: AMOXICILLIN 500 MG CAPSULE PO SCH ×2 (08:12→20:40)
[2021-04-09] MEDS: amLODIPine 10 MG TABLET PO SCH (08:12)
[2021-04-09] MEDS: METOPROLOL TARTRATE 25 MG TABLET PO SCH ×2 (08:12→20:31)
[2021-04-09] MEDS: SODIUM BICARBONATE 650 MG TABLET PO SCH ×3 (08:12→20:31)
[2021-04-09] MEDS: FUROSEMIDE 40 MG/4 ML VIAL IV SCH (08:12)
[2021-04-09] MEDS: HYDROXYCHLOROQUINE 200 MG TABLET PO SCH ×2 (08:12→20:30)
[2021-04-09] MEDS: POLYETHYLENE GLYCOL POWDER 17 GM PACK PO SCH ×2 (08:13→20:35)
[2021-04-09 15:11] LABS: Basophils % 0.1 % (0.0-0.8); Hematocrit 22.1 VOL% (35.7-47.0); Hemoglobin 7.5 GM/DL (12.0-16.0); Immature Granulocytes % 1.2 %; Immature Granulocytes Absolute 0.21 #; Lymphocytes # 0.4 10*3/uL (1.4-4.0); Lymphocytes % 2.1 % (21.3-54.2); Mean Corpuscular HGB Conc 33.9 GM/DL (32-36); Mean Corpuscular Volume 83.4 FL (87-102); Neutrophils % 93.6 % (38.7-73.9); Platelet Count 62 T/CUMM (130-400); Red Blood Count 2.65 MC/CUMM (3.8-5.5); Red Cell Distribution Width 15.3 % (9.3-17.3); White Blood Count 17.2 T/CUMM (4-12)
[2021-04-09 15:45] LABS: Calcium 8.1 MG/DL (8.5-10.1); Osmolality,Calculated 338.1 MOS/KG (273-304); Potassium 4.9 MMOL/L (3.5-5.1)
[2021-04-09 15:58] LABS: Lymphocytes 2 % (20-55); Segmented Neutrophils 98 % (50-85); Total Cells Counted 100
[2021-04-09 15:59] LABS: Spherocytes Slight
[2021-04-09 16:00] LABS: Microcytosis 1+; Platelet Estimate Decreased
[2021-04-09] MEDS: diphenhydrAMINE CAP 25 MG CAPSULE PO PRN (19:15)
[2021-04-10] MEDS: MEROPENEM 500 MG in SODIUM CHLORIDE 0.9% 100 ML IV SCH (02:04)
[2021-04-10 05:14] LABS: Protein/Creatinine Ratio,Urine 4.1 RATIO
[2021-04-10 07:07] LABS: Basophils % 0.1 % (0.0-0.8); Hematocrit 25.2 VOL% (35.7-47.0); Hemoglobin 8.4 GM/DL (12.0-16.0); Immature Granulocytes % 1.2 %; Lymphocytes # 1.5 10*3/uL (1.4-4.0); Lymphocytes % 6.2 % (21.3-54.2); Mean Corpuscular HGB Conc 33.3 GM/DL (32-36); Mean Corpuscular Volume 82.9 FL (87-102); Monocytes % 9.5 % (1.7-12.7); Platelet Count 89 T/CUMM (130-400); Red Blood Count 3.04 MC/CUMM (3.8-5.5); Red Cell Distribution Width 15.3 % (9.3-17.3); White Blood Count 24.2 T/CUMM (4-12)
[2021-04-10 07:15] LABS: Calcium 8.4 MG/DL (8.5-10.1); Osmolality,Calculated 329.5 MOS/KG (273-304); Potassium 4.5 MMOL/L (3.5-5.1)
[2021-04-10 07:20] LABS: Hypochromasia 1+; Lymphocytes 8 % (20-55); Microcytosis 1+; Platelet Estimate Decreased; Segmented Neutrophils 86 % (50-85); Total Cells Counted 100
[2021-04-10 07:21] LABS: Uric Acid 13.8 MG/DL (2.6-6.0)
[2021-04-10] MEDS: ONDANSETRON 4 MG/2 ML VIAL IV PRN ×3 (07:59→18:04)
[2021-04-10] MEDS: POLYETHYLENE GLYCOL POWDER 17 GM PACK PO SCH ×2 (08:51→22:24)
[2021-04-10] MEDS: FUROSEMIDE 40 MG/4 ML VIAL IV SCH (09:13)
[2021-04-10] MEDS ORDERED: BUPIVACAINE MPF 0.25% 30 ML VIAL ONE (12:52)
[2021-04-10] MEDS ORDERED: LIDOCAINE 1%/EPI INJ 20 ML VIAL ONE (12:53)
[2021-04-10] MEDS ORDERED: HEPARIN 5,000 UNIT/1 ML VIAL ONE (12:53)
[2021-04-10] MEDS ORDERED: SODIUM CHLORIDE 0.9% 250 ML IV SCH (13:00)
[2021-04-10] MEDS ORDERED: fentaNYL 100 MCG/2 ML VIAL ONE (13:08)
[2021-04-10] MEDS ORDERED: LIDOCAINE 2% 5 ML VIAL ONE (13:08)
[2021-04-10] MEDS ORDERED: propofoL 200 MG/20 ML VIAL IV ONE (13:08)
[2021-04-10] MEDS ORDERED: KETAMINE 500 MG/10 ML VIAL ONE (13:08)
[2021-04-10] MEDS ORDERED: SODIUM CHLORIDE 0.9% 250 ML IV ONE (13:08)
[2021-04-10] MEDS ORDERED: MIDAZOLAM 2 MG/2 ML VIAL ONE ×2 (13:09→13:17)
[2021-04-10] MEDS: DOCUSATE SODIUM 100 MG CAPSULE PO SCH ×2 (14:31→22:24)
[2021-04-10] MEDS: HYDROXYCHLOROQUINE 200 MG TABLET PO SCH ×2 (14:32→22:25)
[2021-04-10] MEDS: predniSONE 20 MG TABLET PO SCH (14:32)
[2021-04-10] MEDS: METOPROLOL TARTRATE 25 MG TABLET PO SCH ×2 (14:32→22:26)
[2021-04-10] MEDS: amLODIPine 10 MG TABLET PO SCH (14:32)
[2021-04-10] MEDS: PANTOPRAZOLE 40 MG TABLET PO SCH ×2 (14:32→22:24)
[2021-04-10] MEDS: LOSARTAN 50 MG TABLET PO SCH (14:32)
[2021-04-10] MEDS: SODIUM BICARBONATE 650 MG TABLET PO SCH ×3 (14:33→22:25)
[2021-04-10] MEDS: AMOXICILLIN 500 MG CAPSULE PO SCH (14:45)
[2021-04-10] MEDS ORDERED: HEPARIN 10,000 UNIT/10 ML VIAL IV ONE (17:00)
[2021-04-10 17:30] LABS: Hepatitis B Core IgM Quant 0.09 Index; Hepatitis B Surface Ag Quant < 0.10 Index; Hepatitis B Surface Ag Result Non-Reactive (NonReactive); Hepatitis C Virus Ab Quant 0.07 Index; Hepatitis C Virus Ab Result Non-Reactive (NonReactive)
[2021-04-10] MEDS ORDERED: EPOETIN ALFA-EPBX 10,000 UNIT/ML VIAL SUBCUT SCH (18:30)
[2021-04-10] MEDS: PROMETHAZINE 25 MG TABLET PO PRN (19:37)
[2021-04-10] MEDS: ACETAMINOPHEN 325 MG TABLET PO PRN (19:37)
[2021-04-10] MEDS ORDERED: CLARITHROMYCIN 500 MG TABLET PO SCH (21:00)
[2021-04-10] MEDS: diphenhydrAMINE CAP 25 MG CAPSULE PO PRN (22:24)
[2021-04-11 05:24] LABS: INR 0.9; PT Patient Result 10.4 SECS (10.5-12.0)
[2021-04-11 05:27] LABS: Eosinophils # 0.1 10*3/uL (0.0-0.87); Eosinophils % 0.3 % (0.00-10.9); Hematocrit 24.1 VOL% (35.7-47.0); Hemoglobin 7.9 GM/DL (12.0-16.0); Lymphocytes # 1.6 10*3/uL (1.4-4.0); Lymphocytes % 7.9 % (21.3-54.2); Mean Corpuscular HGB Conc 32.8 GM/DL (32-36); Mean Corpuscular Volume 84.9 FL (87-102); Monocytes % 10.9 % (1.7-12.7); Neutrophils % 79.9 % (38.7-73.9); Platelet Count 80 T/CUMM (130-400); Red Blood Count 2.84 MC/CUMM (3.8-5.5); Red Cell Distribution Width 15.2 % (9.3-17.3); White Blood Count 20.1 T/CUMM (4-12)
[2021-04-11] MEDS: PROMETHAZINE 25 MG TABLET PO PRN (05:43)
[2021-04-11 05:55] LABS: Calcium 8.3 MG/DL (8.5-10.1); Osmolality,Calculated 317.1 MOS/KG (273-304)
[2021-04-11 05:58] LABS: Hypochromasia 1+; Lymphocytes 6 % (20-55); Microcytosis 1+; Platelet Estimate Decreased; Segmented Neutrophils 88 % (50-85); Total Cells Counted 100
[2021-04-11 06:01] LABS: % Iron Saturation 24.6 % (18-50); Ferritin 771.8 ng/mL (8-252)
[2021-04-11 06:02] LABS: Folate 6.42 NG/ML (5.38-24.0)
[2021-04-11] MEDS ORDERED: DIAZEPAM 5 MG TABLET PO ONE (07:30)
[2021-04-11] MEDS: ONDANSETRON 4 MG/2 ML VIAL IV PRN (07:56)
[2021-04-11] MEDS: SEVELAMER CARBONATE 800 MG TABLET PO SCH ×3 (09:43→17:13)
[2021-04-11] MEDS: METOPROLOL TARTRATE 25 MG TABLET PO SCH ×2 (09:51→21:32)
[2021-04-11] MEDS: SODIUM BICARBONATE 650 MG TABLET PO SCH ×3 (09:51→21:33)
[2021-04-11] MEDS: DOCUSATE SODIUM 100 MG CAPSULE PO SCH ×2 (09:52→21:33)
[2021-04-11] MEDS: PANTOPRAZOLE 40 MG TABLET PO SCH ×2 (09:52→21:33)
[2021-04-11] MEDS: POLYETHYLENE GLYCOL POWDER 17 GM PACK PO SCH ×2 (09:53→21:32)
[2021-04-11] MEDS ORDERED: SODIUM CHLORIDE 0.45% 1,000 ML IV SCH (10:30)
[2021-04-11] MEDS ORDERED: HEPARIN 10,000 UNIT/10 ML VIAL IV SCH (10:45)
[2021-04-11] MEDS: predniSONE 20 MG TABLET PO SCH (11:50)
[2021-04-11] MEDS: HYDROXYCHLOROQUINE 200 MG TABLET PO SCH ×2 (11:50→21:34)
[2021-04-11] MEDS: LOSARTAN 50 MG TABLET PO SCH (11:50)
[2021-04-11] MEDS: amLODIPine 10 MG TABLET PO SCH (14:17)
[2021-04-11] MEDS: FUROSEMIDE 40 MG/4 ML VIAL IV SCH (14:18)
[2021-04-11] MEDS: diphenhydrAMINE CAP 25 MG CAPSULE PO PRN (19:55)
[2021-04-11] MEDS: MEROPENEM 500 MG in SODIUM CHLORIDE 0.9% 100 ML IV SCH (21:31)
[2021-04-12 06:09] LABS: Basophils % 0.1 % (0.0-0.8); Hematocrit 18.1 VOL% (35.7-47.0); Immature Granulocytes % 1.1 %; Immature Granulocytes Absolute 0.16 #; Lymphocytes # 0.5 10*3/uL (1.4-4.0); Lymphocytes % 3.2 % (21.3-54.2); Mean Corpuscular HGB Conc 33.7 GM/DL (32-36); Mean Corpuscular Volume 84.6 FL (87-102); Monocytes % 8.1 % (1.7-12.7); Neutrophils % 87.5 % (38.7-73.9); Platelet Count 64 T/CUMM (130-400); Red Blood Count 2.14 MC/CUMM (3.8-5.5); Red Cell Distribution Width 14.8 % (9.3-17.3)
[2021-04-12 06:18] LABS: Hemoglobin 6.1 GM/DL (12.0-16.0)
[2021-04-12 06:25] LABS: Calcium 8.2 MG/DL (8.5-10.1); Osmolality,Calculated 308.1 MOS/KG (273-304); Potassium 4.5 MMOL/L (3.5-5.1)
[2021-04-12 06:30] LABS: Hypochromasia 1+; Lymphocytes 4 % (20-55); Microcytosis 1+; Platelet Estimate Decreased; Segmented Neutrophils 92 % (50-85); Total Cells Counted 100
[2021-04-12] MEDS ORDERED: SODIUM CHLORIDE 0.9% 1,000 ML IV PRN ×3 (07:25→10:13)
[2021-04-12] MEDS: ONDANSETRON 4 MG/2 ML VIAL IV PRN (10:20)
[2021-04-12] MEDS: SODIUM BICARBONATE 650 MG TABLET PO SCH ×3 (10:55→21:04)
[2021-04-12] MEDS: SEVELAMER CARBONATE 800 MG TABLET PO SCH ×3 (10:55→16:46)
[2021-04-12] MEDS: METOPROLOL TARTRATE 25 MG TABLET PO SCH ×2 (11:02→21:05)
[2021-04-12] MEDS: PANTOPRAZOLE 40 MG TABLET PO SCH ×2 (11:02→21:04)
[2021-04-12] MEDS: POLYETHYLENE GLYCOL POWDER 17 GM PACK PO SCH ×2 (11:19→21:05)
[2021-04-12] MEDS: FUROSEMIDE 40 MG/4 ML VIAL IV SCH (12:23)
[2021-04-12] MEDS: amLODIPine 10 MG TABLET PO SCH (12:37)
[2021-04-12] MEDS: LOSARTAN 50 MG TABLET PO SCH (12:37)
[2021-04-12] MEDS: HYDROXYCHLOROQUINE 200 MG TABLET PO SCH ×2 (12:37→21:04)
[2021-04-12] MEDS: DOCUSATE SODIUM 100 MG CAPSULE PO SCH ×2 (12:37→21:04)
[2021-04-12] MEDS: predniSONE 20 MG TABLET PO SCH (12:37)
[2021-04-12] MEDS: diphenhydrAMINE CAP 25 MG CAPSULE PO PRN (17:02)
[2021-04-12 17:16] LABS: Hematocrit 28.1 VOL% (35.7-47.0); Hemoglobin 9.4 GM/DL (12.0-16.0)
[2021-04-12] MEDS: PROMETHAZINE 25 MG TABLET PO PRN (21:05)
[2021-04-12] MEDS: MEROPENEM 500 MG in SODIUM CHLORIDE 0.9% 100 ML IV SCH (22:57)
[2021-04-13] MEDS ORDERED: diphenhydrAMINE CAP 25 MG CAPSULE PO PRN (06:02)
[2021-04-13 06:03] LABS: Basophils % 0.1 % (0.0-0.8); Hematocrit 23.9 VOL% (35.7-47.0); Hemoglobin 8.1 GM/DL (12.0-16.0); Immature Granulocytes % 1.5 %; Immature Granulocytes Absolute 0.22 #; Lymphocytes # 0.5 10*3/uL (1.4-4.0); Lymphocytes % 3.1 % (21.3-54.2); Mean Corpuscular HGB Conc 33.9 GM/DL (32-36); Mean Corpuscular Volume 83.9 FL (87-102); Monocytes % 9.9 % (1.7-12.7); Neutrophils % 85.4 % (38.7-73.9); Platelet Count 72 T/CUMM (130-400); Red Blood Count 2.85 MC/CUMM (3.8-5.5); White Blood Count 14.7 T/CUMM (4-12)
[2021-04-13 06:24] LABS: Calcium 8.1 MG/DL (8.5-10.1); Osmolality,Calculated 301.1 MOS/KG (273-304); Potassium 4.3 MMOL/L (3.5-5.1)
[2021-04-13 06:37] LABS: Lymphocytes 4 % (20-55); Platelet Estimate Decreased; Segmented Neutrophils 91 % (50-85); Total Cells Counted 100
[2021-04-13 06:38] LABS: Microcytosis Slight
[2021-04-13] MEDS: ACETAMINOPHEN 325 MG TABLET PO PRN (07:48)
[2021-04-13] MEDS: PROMETHAZINE 25 MG TABLET PO PRN ×2 (07:48→21:57)
[2021-04-13] MEDS: SEVELAMER CARBONATE 800 MG TABLET PO SCH ×3 (12:49→16:32)
[2021-04-13] MEDS: FUROSEMIDE 40 MG/4 ML VIAL IV SCH (13:00)
[2021-04-13] MEDS: POLYETHYLENE GLYCOL POWDER 17 GM PACK PO SCH ×2 (13:00→22:00)
[2021-04-13] MEDS: METOPROLOL TARTRATE 25 MG TABLET PO SCH ×2 (13:01→21:56)
[2021-04-13] MEDS: DOCUSATE SODIUM 100 MG CAPSULE PO SCH ×2 (13:01→21:56)
[2021-04-13] MEDS: LOSARTAN 50 MG TABLET PO SCH (13:02)
[2021-04-13] MEDS: SODIUM BICARBONATE 650 MG TABLET PO SCH ×3 (13:02→21:56)
[2021-04-13] MEDS: PANTOPRAZOLE 40 MG TABLET PO SCH ×2 (13:02→21:56)
[2021-04-13] MEDS: predniSONE 20 MG TABLET PO SCH (13:02)
[2021-04-13] MEDS: HYDROXYCHLOROQUINE 200 MG TABLET PO SCH ×2 (13:02→21:56)
[2021-04-13] MEDS: amLODIPine 10 MG TABLET PO SCH (13:02)
[2021-04-13] MEDS: ONDANSETRON 4 MG/2 ML VIAL IV PRN (13:10)
[2021-04-13] MEDS: MEROPENEM 500 MG in SODIUM CHLORIDE 0.9% 100 ML IV SCH (21:54)
[2021-04-14 03:54] LABS: Basophils % 0.1 % (0.0-0.8); Hematocrit 22.5 VOL% (35.7-47.0); Hemoglobin 7.4 GM/DL (12.0-16.0); Immature Granulocytes % 1.3 %; Immature Granulocytes Absolute 0.17 #; Lymphocytes # 0.6 10*3/uL (1.4-4.0); Lymphocytes % 4.2 % (21.3-54.2); Mean Corpuscular HGB Conc 32.9 GM/DL (32-36); Mean Corpuscular Volume 85.6 FL (87-102); Monocytes % 9.5 % (1.7-12.7); Neutrophils % 84.9 % (38.7-73.9); Red Blood Count 2.63 MC/CUMM (3.8-5.5); Red Cell Distribution Width 14.2 % (9.3-17.3); White Blood Count 13.3 T/CUMM (4-12)
[2021-04-14 03:59] LABS: Platelet Count 73 T/CUMM (130-400)
[2021-04-14 04:10] LABS: Calcium 7.9 MG/DL (8.5-10.1); Potassium 4.3 MMOL/L (3.5-5.1)
[2021-04-14 04:27] LABS: Lymphocytes 4 % (20-55); Platelet Estimate Decreased; Segmented Neutrophils 86 % (50-85); Total Cells Counted 100
[2021-04-14 04:28] LABS: Schistocytes Slight; Sickle Cells Few
[2021-04-14] MEDS: ACETAMINOPHEN 325 MG TABLET PO PRN (05:19)
[2021-04-14] MEDS ORDERED: SODIUM CHLORIDE 0.9% 1,000 ML IV PRN (08:04)
[2021-04-14] MEDS ORDERED: BUPIVACAINE MPF 0.25% 30 ML VIAL ONE (12:48)
[2021-04-14] MEDS ORDERED: LIDOCAINE 1%/EPI INJ 20 ML VIAL ONE (12:48)
[2021-04-14] MEDS ORDERED: MIDAZOLAM 2 MG/2 ML VIAL ONE (12:49)
[2021-04-14] MEDS ORDERED: fentaNYL 100 MCG/2 ML VIAL ONE (12:49)
[2021-04-14] MEDS: SEVELAMER CARBONATE 800 MG TABLET PO SCH ×3 (12:53→17:05)
[2021-04-14] MEDS: SODIUM BICARBONATE 650 MG TABLET PO SCH ×3 (12:54→21:26)
[2021-04-14] MEDS ORDERED: SODIUM CHLORIDE 0.9% 250 ML IV SCH (13:00)
[2021-04-14] MEDS ORDERED: LIDOCAINE 2% 5 ML VIAL ONE (13:05)
[2021-04-14] MEDS ORDERED: ETOMIDATE 40 MG/20 ML VIAL IV ONE (13:05)
[2021-04-14] MEDS ORDERED: propofoL 200 MG/20 ML VIAL IV ONE (13:05)
[2021-04-14] MEDS ORDERED: SEVOFLURANE 1 UNIT/15 MINUTE INH ONE (13:06)
[2021-04-14] MEDS ORDERED: ROCURONIUM 50 MG/5 ML VIAL IV ONE (13:06)
[2021-04-14] MEDS ORDERED: methylPREDNISolone SOD SUC 125 MG/2 ML VIAL ONE (13:06)
[2021-04-14] MEDS ORDERED: ONDANSETRON 4 MG/2 ML VIAL ONE (13:13)
[2021-04-14] MEDS ORDERED: ceFAZolin 1,000 MG VIAL ONE (13:14)
[2021-04-14] MEDS ORDERED: SUGAMMADEX 200 MG/2 ML VIAL IV ONE (13:26)
[2021-04-14] MEDS ORDERED: hydrALAZINE 20 MG/1 ML VIAL ONE ×2 (13:39→13:40)
[2021-04-14] MEDS ORDERED: LABETALOL 20 MG/4 ML SYRINGE IV ONE (13:41)
[2021-04-14] MEDS ORDERED: SODIUM CHLORIDE 0.9% 250 ML IV ONE (13:46)
[2021-04-14] MEDS ORDERED: HYDROmorphone 2 MG/1 ML VIAL IV PRN (13:58)
[2021-04-14] MEDS: POLYETHYLENE GLYCOL POWDER 17 GM PACK PO SCH ×2 (14:05→21:34)
[2021-04-14] MEDS: DOCUSATE SODIUM 100 MG CAPSULE PO SCH ×2 (15:09→21:34)
[2021-04-14] MEDS: FUROSEMIDE 40 MG/4 ML VIAL IV SCH (15:11)
[2021-04-14] MEDS: HYDROXYCHLOROQUINE 200 MG TABLET PO SCH ×2 (15:11→21:26)
[2021-04-14] MEDS: amLODIPine 10 MG TABLET PO SCH (15:12)
[2021-04-14] MEDS: predniSONE 20 MG TABLET PO SCH (15:12)
[2021-04-14] MEDS: METOPROLOL TARTRATE 25 MG TABLET PO SCH ×2 (15:13→21:27)
[2021-04-14] MEDS: LOSARTAN 50 MG TABLET PO SCH (15:13)
[2021-04-14] MEDS: PANTOPRAZOLE 40 MG TABLET PO SCH ×2 (15:14→21:28)
[2021-04-14] MEDS: PROMETHAZINE 25 MG TABLET PO PRN (21:27)
[2021-04-14] MEDS: MEROPENEM 500 MG in SODIUM CHLORIDE 0.9% 100 ML IV SCH (21:28)
[2021-04-15 04:51] LABS: Basophils % 0.1 % (0.0-0.8); Hematocrit 30.1 VOL% (35.7-47.0); Hemoglobin 9.8 GM/DL (12.0-16.0); Immature Granulocytes % 1.2 %; Immature Granulocytes Absolute 0.15 #; Lymphocytes # 0.4 10*3/uL (1.4-4.0); Lymphocytes % 2.8 % (21.3-54.2); Mean Corpuscular HGB Conc 32.6 GM/DL (32-36); Mean Corpuscular Volume 85.5 FL (87-102); Monocytes % 6.7 % (1.7-12.7); NRBC # 0.02 10*3/uL; Neutrophils % 89.2 % (38.7-73.9); Red Blood Count 3.52 MC/CUMM (3.8-5.5); Red Cell Distribution Width 14.8 % (9.3-17.3); White Blood Count 12.9 T/CUMM (4-12)
[2021-04-15 04:55] LABS: Platelet Count 70 T/CUMM (130-400)
[2021-04-15 05:12] LABS: Band Neutrophils 1 % (0-10); Hypochromasia Slight; Lymphocytes 1 % (20-55); Platelet Estimate Decreased; Segmented Neutrophils 96 % (50-85)
[2021-04-15 05:13] LABS: Total Cells Counted 100
[2021-04-15 05:14] LABS: Osmolality,Calculated 290.1 MOS/KG (273-304); Potassium 4.4 MMOL/L (3.5-5.1)
[2021-04-15] MEDS: PROMETHAZINE 25 MG TABLET PO PRN (06:43)
[2021-04-15] MEDS: predniSONE 20 MG TABLET PO SCH (09:43)
[2021-04-15] MEDS: CHOLECALCIFEROL 1,000 UNIT TABLET PO SCH (09:43)
[2021-04-15] MEDS: FUROSEMIDE 40 MG/4 ML VIAL IV SCH (09:43)
[2021-04-15] MEDS: SEVELAMER CARBONATE 800 MG TABLET PO SCH ×3 (09:43→17:39)
[2021-04-15] MEDS: SODIUM BICARBONATE 650 MG TABLET PO SCH ×3 (09:43→21:44)
[2021-04-15] MEDS: METOPROLOL TARTRATE 25 MG TABLET PO SCH ×2 (09:44→21:44)
[2021-04-15] MEDS: amLODIPine 10 MG TABLET PO SCH (09:44)
[2021-04-15] MEDS: PANTOPRAZOLE 40 MG TABLET PO SCH ×2 (09:44→21:44)
[2021-04-15] MEDS: HYDROXYCHLOROQUINE 200 MG TABLET PO SCH ×2 (09:44→21:44)
[2021-04-15] MEDS: LOSARTAN 50 MG TABLET PO SCH (09:44)
[2021-04-15] MEDS: DOCUSATE SODIUM 100 MG CAPSULE PO SCH ×2 (10:41→21:45)
[2021-04-15] MEDS: POLYETHYLENE GLYCOL POWDER 17 GM PACK PO SCH ×2 (10:42→21:45)
[2021-04-16] MEDS: hydrALAZINE 20 MG/1 ML VIAL IV PRN (04:24)
[2021-04-16 08:50] LABS: Basophils % 0.1 % (0.0-0.8); Eosinophils % 0.1 % (0.00-10.9); Hematocrit 28.5 VOL% (35.7-47.0); Hemoglobin 9.5 GM/DL (12.0-16.0); Immature Granulocytes Absolute 0.17 #; Lymphocytes # 1.1 10*3/uL (1.4-4.0); Lymphocytes % 6.3 % (21.3-54.2); Mean Corpuscular HGB Conc 33.3 GM/DL (32-36); Mean Corpuscular Volume 85.8 FL (87-102); Monocytes % 6.3 % (1.7-12.7); Neutrophils % 86.2 % (38.7-73.9); Red Blood Count 3.32 MC/CUMM (3.8-5.5); Red Cell Distribution Width 14.8 % (9.3-17.3); White Blood Count 16.6 T/CUMM (4-12)
[2021-04-16 08:51] LABS: Platelet Count 70 T/CUMM (130-400)
[2021-04-16 09:04] LABS: Calcium 7.9 MG/DL (8.5-10.1); Osmolality,Calculated 297.7 MOS/KG (273-304); Potassium 3.7 MMOL/L (3.5-5.1)
[2021-04-16] MEDS: SEVELAMER CARBONATE 800 MG TABLET PO SCH ×3 (10:16→16:41)
[2021-04-16] MEDS: FUROSEMIDE 40 MG/4 ML VIAL IV SCH (10:16)
[2021-04-16] MEDS: DOCUSATE SODIUM 100 MG CAPSULE PO SCH ×2 (10:16→20:39)
[2021-04-16] MEDS: CHOLECALCIFEROL 1,000 UNIT TABLET PO SCH (10:16)
[2021-04-16] MEDS: SODIUM BICARBONATE 650 MG TABLET PO SCH ×3 (10:16→20:39)
[2021-04-16] MEDS: amLODIPine 10 MG TABLET PO SCH (10:16)
[2021-04-16] MEDS: PANTOPRAZOLE 40 MG TABLET PO SCH ×2 (10:17→20:39)
[2021-04-16] MEDS: LOSARTAN 50 MG TABLET PO SCH (10:17)
[2021-04-16] MEDS: METOPROLOL TARTRATE 25 MG TABLET PO SCH ×2 (10:17→20:39)
[2021-04-16] MEDS: predniSONE 20 MG TABLET PO SCH (10:17)
[2021-04-16] MEDS: HYDROXYCHLOROQUINE 200 MG TABLET PO SCH ×2 (10:18→20:39)
[2021-04-16] MEDS: POLYETHYLENE GLYCOL POWDER 17 GM PACK PO SCH ×2 (10:50→20:40)
[2021-04-17 05:52] LABS: Basophils % 0.1 % (0.0-0.8); Hematocrit 26.7 VOL% (35.7-47.0); Immature Granulocytes % 0.7 %; Immature Granulocytes Absolute 0.09 #; Lymphocytes # 0.8 10*3/uL (1.4-4.0); Lymphocytes % 5.7 % (21.3-54.2); Mean Corpuscular HGB Conc 33.7 GM/DL (32-36); Mean Corpuscular Volume 85.3 FL (87-102); Monocytes % 6.7 % (1.7-12.7); Neutrophils % 86.8 % (38.7-73.9); Platelet Count 47 T/CUMM (130-400); Red Blood Count 3.13 MC/CUMM (3.8-5.5); Red Cell Distribution Width 14.9 % (9.3-17.3); White Blood Count 13.6 T/CUMM (4-12)
[2021-04-17 06:20] LABS: Hypochromasia 1+
[2021-04-17 06:21] LABS: Calcium 7.9 MG/DL (8.5-10.1); Microcytosis 1+; Osmolality,Calculated 298.8 MOS/KG (273-304); Platelet Estimate Decreased; Polychromasia Slight; Potassium 3.7 MMOL/L (3.5-5.1)
[2021-04-17] MEDS: ONDANSETRON 4 MG/2 ML VIAL IV PRN (07:12)
[2021-04-17 08:47] VITALS: BP 144/96
[2021-04-17] MEDS: SEVELAMER CARBONATE 800 MG TABLET PO SCH ×2 (09:10→13:32)
[2021-04-17] MEDS: METOPROLOL TARTRATE 25 MG TABLET PO SCH (09:10)
[2021-04-17] MEDS: SODIUM BICARBONATE 650 MG TABLET PO SCH (09:10)
[2021-04-17] MEDS: CHOLECALCIFEROL 1,000 UNIT TABLET PO SCH (09:11)
[2021-04-17] MEDS: PANTOPRAZOLE 40 MG TABLET PO SCH (09:11)
[2021-04-17] MEDS: HYDROXYCHLOROQUINE 200 MG TABLET PO SCH (09:11)
[2021-04-17] MEDS: LOSARTAN 50 MG TABLET PO SCH (09:11)
[2021-04-17] MEDS: amLODIPine 10 MG TABLET PO SCH (09:11)
[2021-04-17] MEDS: FUROSEMIDE 40 MG/4 ML VIAL IV SCH (09:12)
[2021-04-17] MEDS: predniSONE 20 MG TABLET PO SCH (09:19)
[2021-04-17] MEDS: POLYETHYLENE GLYCOL POWDER 17 GM PACK PO SCH (10:07)
[2021-04-17] MEDS: DOCUSATE SODIUM 100 MG CAPSULE PO SCH (10:07)
== END 2021-04-17 14:04 | disposition home or self-care (01) | DRG 674 ==
LOC: N.EDINP 20:32 → N.ED 20:32 → N.EDINP 04-08 01:23 → N.5E 04-08 01:45 → SUATTDRO 04-10 15:17
PROVIDERS: ADMIT Hospitalist; ATTEND Internal Medicine

== ENCOUNTER 2021-06-10 13:40 | Inpatient (IN) ==
[2021-06-10 15:42] LABS: Basophils % 0.1 % (0.0-0.8); Hemoglobin 8.4 GM/DL (12.0-16.0); Immature Granulocytes % 3.3 %; Immature Granulocytes Absolute 0.53 #; Lymphocytes # 0.3 10*3/uL (1.4-4.0); Lymphocytes % 1.8 % (21.3-54.2); Mean Corpuscular HGB Conc 32.3 GM/DL (32-36); Mean Corpuscular Volume 90.6 FL (87-102); Mean Platelet Volume 10.9 FL (9.6-12.0); Monocytes % 4.5 % (1.7-12.7); Neutrophils % 90.3 % (38.7-73.9); Platelet Count 82 T/CUMM (130-400); Red Blood Count 2.87 MC/CUMM (3.8-5.5); Red Cell Distribution Width 14.5 % (9.3-17.3); White Blood Count 16.3 T/CUMM (4-12)
[2021-06-10 15:53] LABS: Alanine Aminotransferase 14 U/L (13-56); Albumin 2.1 G/DL (3.4-5.0); Alkaline Phosphatase 49 U/L (45-117); Aspartate Amino Transferase 13 U/L (0-37); Bilirubin,Direct < 0.050 MG/DL (0.0-0.20); Bilirubin,Indirect 0.3 MG/DL (0.0-1.0); Bilirubin,Total < 0.39 MG/DL (0.20-1.00); Blood Urea Nitrogen 86 MG/DL (7-18); Calcium 7.8 MG/DL (8.5-10.1); Carbon Dioxide 23 MMOL/L (21-32); Estimated Glom Filtration Rate 25 ML/MIN; Glucose 163 MG/DL (74-106); Osmolality,Calculated 312.1 MOS/KG (273-304); Potassium 3.7 MMOL/L (3.5-5.1); Sodium 142 MMOL/L (136-145)
[2021-06-10 16:05] LABS: Anisocytosis 1+; Band Neutrophils 1 % (0-10); Macrocytosis 1+; Metamyelocytes 1 %; Microcytosis 1+; Platelet Estimate Decreased; Poikilocytosis Few; Schistocytes Few; Segmented Neutrophils 96 % (50-85); Total Cells Counted 100
[2021-06-10 16:06] LABS: Polychromasia Slight
[2021-06-10 16:30] LABS: Bilirubin,Urine Negative (Negative); Blood, Urine Moderate mg/dL (Negative); Glucose,Urine (UA) Negative (Negative); Ketones,Urine Negative (Negative); Nitrite,Urine Negative (Negative); Protein,Urine >=500 MG/DL; Urine Appearance Slightly Hazy (Clear); Urine Color Yellow (Yellow); Urine Specific Gravity 1.009 (1.001-1.035); Urine Urobilinogen < 2.0 EU/DL (<2.0)
[2021-06-10 16:37] LABS: Hyaline Casts,Urine 12 /LPF (0-3); RBC,Urine 3 /HPF (0-4); Squamous Epithelial Cell,Urine Occasional /HPF (0-10)
[2021-06-10] MEDS ORDERED: ONDANSETRON 4 MG/2 ML VIAL IV PRN (19:57)
[2021-06-10] MEDS ORDERED: DEXTROSE 50% 25 GM/50 ML SYRINGE IV PRN (19:57)
[2021-06-10] MEDS ORDERED: GLUCAGON 1 MG VIAL IM PRN (19:57)
[2021-06-10] MEDS ORDERED: ACETAMINOPHEN 325 MG TABLET PO PRN (19:57)
[2021-06-10] MEDS ORDERED: hydrALAZINE 20 MG/1 ML VIAL IV PRN (20:03)
[2021-06-10] MEDS ORDERED: cloNIDine 0.1 MG TABLET PO PRN (20:04)
[2021-06-10] MEDS ORDERED: ONDANSETRON 4 MG TABLET PO PRN (20:04)
[2021-06-10 20:39] LABS: Thyroid Stimulating Hormone 0.514 uIU/ml (0.358-3.74)
[2021-06-10 20:45] LABS: Folate 6.71 NG/ML (5.38-24.0); Vitamin B12 710 PG/ML (211-911)
[2021-06-10 21:11] LABS: Basophils % 0.1 % (0.0-0.8); Hematocrit 24.2 VOL% (35.7-47.0); Hemoglobin 7.9 GM/DL (12.0-16.0); Immature Granulocytes % 3.9 %; Immature Granulocytes Absolute 0.63 #; Lymphocytes # 0.4 10*3/uL (1.4-4.0); Lymphocytes % 2.7 % (21.3-54.2); Mean Corpuscular HGB Conc 32.6 GM/DL (32-36); Mean Corpuscular Volume 89.6 FL (87-102); Mean Platelet Volume 9.8 FL (9.6-12.0); Monocytes % 6.9 % (1.7-12.7); Neutrophils % 86.4 % (38.7-73.9); Platelet Count 75 T/CUMM (130-400); Red Cell Distribution Width 14.3 % (9.3-17.3); White Blood Count 16.1 T/CUMM (4-12)
[2021-06-10] MEDS: METOPROLOL TARTRATE 25 MG TABLET PO SCH (21:28)
[2021-06-10] MEDS: levETIRAcetam 500 MG TABLET PO SCH (21:28)
[2021-06-10] MEDS: HEPARIN 5,000 UNIT/1 ML VIAL SUBCUT SCH (21:28)
[2021-06-10 21:35] LABS: Band Neutrophils 2 % (0-10); Lymphocytes 2 % (20-55); Metamyelocytes 3 %; Myelocytes 2 %; Segmented Neutrophils 87 % (50-85); Total Cells Counted 100
[2021-06-10 21:38] LABS: Anisocytosis Slight; Microcytosis Slight; Platelet Estimate Decreased; Poikilocytosis Slight; Schistocytes Slight; Tear Drop Cells Slight
[2021-06-10 22:11] LABS: Sedimentation Rate-Westergren 24 MM/HR (0-20)
[2021-06-10] MEDS: HYDROXYCHLOROQUINE 200 MG TABLET PO SCH (23:30)
[2021-06-10] MEDS ORDERED: ALBUTEROL/IPRATROPIUM 3 ML NEB RESP TX ONE (23:37)
[2021-06-11] MEDS: ALBUTEROL/IPRATROPIUM 3 ML NEB RESP TX SCH ×4 (00:01→20:08)
[2021-06-11] MEDS: PROMETHAZINE INJ 12.5 MG in SODIUM CHLORIDE 0.9% 50 ML IV PRN ×2 (00:08→11:58)
[2021-06-11 00:54] LABS: Basophils % 0.2 % (0.0-0.8); Eosinophils % 0.1 % (0.00-10.9); Hematocrit 26.2 VOL% (35.7-47.0); Hemoglobin 8.7 GM/DL (12.0-16.0); Immature Granulocytes Absolute 0.84 #; Lymphocytes # 0.7 10*3/uL (1.4-4.0); Lymphocytes % 3.9 % (21.3-54.2); Mean Corpuscular HGB Conc 33.2 GM/DL (32-36); Mean Corpuscular Volume 88.8 FL (87-102); Mean Platelet Volume 9.8 FL (9.6-12.0); Monocytes % 8.1 % (1.7-12.7); Neutrophils % 82.7 % (38.7-73.9); Red Blood Count 2.95 MC/CUMM (3.8-5.5); Red Cell Distribution Width 14.5 % (9.3-17.3); White Blood Count 16.9 T/CUMM (4-12)
[2021-06-11 00:59] LABS: Platelet Count 82 T/CUMM (130-400)
[2021-06-11 01:17] LABS: Lymphocytes 4 % (20-55); Metamyelocytes 2 %; Segmented Neutrophils 87 % (50-85); Total Cells Counted 100
[2021-06-11 01:19] LABS: Helmet Cells Few; Microcytosis 2+; Tear Drop Cells Few
[2021-06-11 01:21] LABS: Platelet Estimate Decreased
[2021-06-11 01:23] LABS: Hypochromasia 2+
[2021-06-11 01:41] LABS: Alanine Aminotransferase 13 U/L (13-56); Albumin 2.2 G/DL (3.4-5.0); Alkaline Phosphatase 55 U/L (45-117); Aspartate Amino Transferase 10 U/L (0-37); Bilirubin,Total < 0.39 MG/DL (0.20-1.00); Blood Urea Nitrogen 84 MG/DL (7-18); Calcium 8.1 MG/DL (8.5-10.1); Carbon Dioxide 19 MMOL/L (21-32); Estimated Glom Filtration Rate 26 ML/MIN; Glucose 202 MG/DL (74-106); HDL Cholesterol 62 MG/DL (40-60); Osmolality,Calculated 312.3 MOS/KG (273-304); Potassium 3.4 MMOL/L (3.5-5.1); Risk Ratio 3.06; Sodium 141 MMOL/L (136-145); Total Protein 4.5 G/DL (6.4-8.2); Triglycerides 200 MG/DL (2-150)
[2021-06-11] MEDS ORDERED: FUROSEMIDE 40 MG/4 ML VIAL IV SCH (08:00)
[2021-06-11] MEDS: predniSONE 20 MG TABLET PO SCH (10:07)
[2021-06-11] MEDS: levETIRAcetam 500 MG TABLET PO SCH ×2 (10:07→22:30)
[2021-06-11] MEDS: HYDROXYCHLOROQUINE 200 MG TABLET PO SCH ×2 (10:08→22:24)
[2021-06-11] MEDS: METOPROLOL TARTRATE 25 MG TABLET PO SCH ×2 (10:08→22:24)
[2021-06-11] MEDS: amLODIPine 5 MG TABLET PO SCH (10:08)
[2021-06-11] MEDS: HEPARIN 5,000 UNIT/1 ML VIAL SUBCUT SCH ×2 (10:09→22:24)
[2021-06-11] MEDS: PANTOPRAZOLE 40 MG TABLET PO SCH (10:09)
[2021-06-11] MEDS: DOCUSATE SODIUM 100 MG CAPSULE PO SCH (10:14)
[2021-06-11 10:52] LABS: % Iron Saturation 58.2 % (18-50)
[2021-06-11] MEDS: metOLazone 5 MG TABLET PO SCH (11:58)
[2021-06-11] MEDS: FUROSEMIDE 40 MG/4 ML VIAL IV SCH (17:11)
[2021-06-12] MEDS: PROMETHAZINE INJ 12.5 MG in SODIUM CHLORIDE 0.9% 50 ML IV PRN ×2 (00:19→10:11)
[2021-06-12] MEDS: ALBUTEROL/IPRATROPIUM 3 ML NEB RESP TX SCH ×4 (00:52→20:16)
[2021-06-12 06:08] LABS: Basophils % 0.1 % (0.0-0.8); Eosinophils % 0.2 % (0.00-10.9); Hematocrit 25.1 VOL% (35.7-47.0); Immature Granulocytes % 5.6 %; Immature Granulocytes Absolute 0.78 #; Lymphocytes # 0.9 10*3/uL (1.4-4.0); Lymphocytes % 6.5 % (21.3-54.2); Mean Corpuscular HGB Conc 31.9 GM/DL (32-36); Mean Corpuscular Volume 90.6 FL (87-102); Mean Platelet Volume 11.3 FL (9.6-12.0); Monocytes % 9.4 % (1.7-12.7); Neutrophils % 78.2 % (38.7-73.9); Platelet Count 70 T/CUMM (130-400); Red Blood Count 2.77 MC/CUMM (3.8-5.5); Red Cell Distribution Width 14.5 % (9.3-17.3); White Blood Count 13.9 T/CUMM (4-12)
[2021-06-12 06:23] LABS: Osmolality,Calculated 311.1 MOS/KG (273-304); Potassium 3.3 MMOL/L (3.5-5.1)
[2021-06-12 06:31] LABS: Hypochromasia 1+; Lymphocytes 8 % (20-55); Microcytosis 1+; Platelet Estimate Decreased; Segmented Neutrophils 86 % (50-85); Total Cells Counted 100
[2021-06-12 08:27] LABS: Hemoglobin A1 (Alkaline) 97.7 % (96.5-98.5); Hemoglobin A2 (Alkaline) 2.3 % (1.5-3.5)
[2021-06-12] MEDS ORDERED: ALBUMIN 25% 25 GM/100 ML VIAL IV SCH ×2 (08:34→15:30)
[2021-06-12] MEDS: levETIRAcetam 500 MG TABLET PO SCH ×2 (09:50→22:45)
[2021-06-12] MEDS: METOPROLOL TARTRATE 25 MG TABLET PO SCH ×2 (09:51→22:45)
[2021-06-12] MEDS: HYDROXYCHLOROQUINE 200 MG TABLET PO SCH ×2 (09:51→22:45)
[2021-06-12] MEDS: metOLazone 5 MG TABLET PO SCH (09:51)
[2021-06-12] MEDS: amLODIPine 5 MG TABLET PO SCH (09:51)
[2021-06-12] MEDS: PANTOPRAZOLE 40 MG TABLET PO SCH (10:05)
[2021-06-12] MEDS: predniSONE 20 MG TABLET PO SCH (10:05)
[2021-06-12] MEDS: HEPARIN 5,000 UNIT/1 ML VIAL SUBCUT SCH ×2 (10:07→22:44)
[2021-06-12] MEDS: DOCUSATE SODIUM 100 MG CAPSULE PO SCH (10:07)
[2021-06-12] MEDS: FUROSEMIDE 40 MG/4 ML VIAL IV SCH (11:14)
[2021-06-12] MEDS ORDERED: HEPARIN 10,000 UNIT/10 ML VIAL IV SCH (14:30)
[2021-06-12] MEDS: POTASSIUM BICARB EFFERVESCENT 20 MEQ TAB.EFF PO SCH ×2 (17:51→22:45)
[2021-06-12] MEDS: MYCOPHENOLATE MOFETIL 250 MG CAPSULE PO SCH ×2 (17:51→22:44)
[2021-06-12] MEDS: FUROSEMIDE 100 MG/10 ML VIAL IV SCH (18:58)
[2021-06-13] MEDS: ALBUTEROL/IPRATROPIUM 3 ML NEB RESP TX SCH ×4 (00:20→19:21)
[2021-06-13 06:16] LABS: Basophils % 0.1 % (0.0-0.8); Eosinophils % 0.3 % (0.00-10.9); Hematocrit 22.3 VOL% (35.7-47.0); Hemoglobin 7.1 GM/DL (12.0-16.0); Immature Granulocytes % 5.5 %; Immature Granulocytes Absolute 0.69 #; Lymphocytes % 7.7 % (21.3-54.2); Mean Corpuscular HGB Conc 31.8 GM/DL (32-36); Mean Platelet Volume 11.9 FL (9.6-12.0); Neutrophils % 77.4 % (38.7-73.9); Platelet Count 64 T/CUMM (130-400); Red Blood Count 2.45 MC/CUMM (3.8-5.5); Red Cell Distribution Width 14.3 % (9.3-17.3); White Blood Count 12.6 T/CUMM (4-12)
[2021-06-13 06:32] LABS: Calcium 7.9 MG/DL (8.5-10.1); Osmolality,Calculated 305.4 MOS/KG (273-304); Potassium 3.3 MMOL/L (3.5-5.1)
[2021-06-13 06:41] LABS: Hypochromasia 1+; Lymphocytes 6 % (20-55); Microcytosis 1+; Nucleated Red Blood Cells 1 (0-5); Platelet Estimate Decreased; Segmented Neutrophils 79 % (50-85); Total Cells Counted 100
[2021-06-13] MEDS ORDERED: SODIUM CHLORIDE 0.9% 1,000 ML IV PRN (07:45)
[2021-06-13] MEDS: FUROSEMIDE 100 MG/10 ML VIAL IV SCH ×2 (09:10→19:04)
[2021-06-13] MEDS: MYCOPHENOLATE MOFETIL 250 MG CAPSULE PO SCH ×2 (09:11→21:55)
[2021-06-13] MEDS: amLODIPine 5 MG TABLET PO SCH (09:12)
[2021-06-13] MEDS: predniSONE 20 MG TABLET PO SCH (09:12)
[2021-06-13] MEDS: levETIRAcetam 500 MG TABLET PO SCH ×2 (09:12→21:55)
[2021-06-13] MEDS: METOPROLOL TARTRATE 25 MG TABLET PO SCH ×2 (09:12→21:56)
[2021-06-13] MEDS: HYDROXYCHLOROQUINE 200 MG TABLET PO SCH ×2 (09:12→21:56)
[2021-06-13] MEDS: PANTOPRAZOLE 40 MG TABLET PO SCH (09:13)
[2021-06-13] MEDS: metOLazone 5 MG TABLET PO SCH (09:13)
[2021-06-13] MEDS: POTASSIUM BICARB EFFERVESCENT 20 MEQ TAB.EFF PO SCH ×3 (09:13→21:57)
[2021-06-13] MEDS: DOCUSATE SODIUM 100 MG CAPSULE PO SCH (09:17)
[2021-06-13] MEDS ORDERED: propofoL 200 MG/20 ML VIAL IV ONE (11:48)
[2021-06-13] MEDS ORDERED: fentaNYL 100 MCG/2 ML VIAL ONE (11:48)
[2021-06-13] MEDS ORDERED: MIDAZOLAM 2 MG/2 ML VIAL ONE (11:48)
[2021-06-13] MEDS ORDERED: LIDOCAINE 2% 5 ML VIAL ONE (11:48)
[2021-06-13] MEDS ORDERED: SODIUM CHLORIDE 0.9% 250 ML IV SCH (12:30)
[2021-06-13] MEDS ORDERED: LIDOCAINE 1%/EPI INJ 20 ML VIAL ONE (12:43)
[2021-06-13] MEDS ORDERED: BUPIVACAINE MPF 0.25% 30 ML VIAL ONE (12:43)
[2021-06-13] MEDS ORDERED: SODIUM CHLORIDE 0.9% 100 ML IV ONE (12:53)
[2021-06-13] MEDS: PROMETHAZINE INJ 12.5 MG in SODIUM CHLORIDE 0.9% 50 ML IV PRN (22:04)
[2021-06-14] MEDS: ALBUTEROL/IPRATROPIUM 3 ML NEB RESP TX SCH ×4 (00:14→20:05)
[2021-06-14 06:03] LABS: Basophils % 0.2 % (0.0-0.8); Eosinophils % 0.2 % (0.00-10.9); Hematocrit 22.2 VOL% (35.7-47.0); Hemoglobin 7.1 GM/DL (12.0-16.0); Immature Granulocytes % 6.1 %; Immature Granulocytes Absolute 0.69 #; Lymphocytes # 0.9 10*3/uL (1.4-4.0); Lymphocytes % 7.9 % (21.3-54.2); Mean Platelet Volume 10.6 FL (9.6-12.0); Neutrophils % 76.6 % (38.7-73.9); Red Blood Count 2.44 MC/CUMM (3.8-5.5); Red Cell Distribution Width 14.5 % (9.3-17.3); White Blood Count 11.3 T/CUMM (4-12)
[2021-06-14 06:07] LABS: Calcium 8.2 MG/DL (8.5-10.1); Potassium 3.3 MMOL/L (3.5-5.1)
[2021-06-14 06:19] LABS: Platelet Count 72 T/CUMM (130-400)
[2021-06-14 06:36] LABS: Lymphocytes 8 % (20-55); Metamyelocytes 1 %; Segmented Neutrophils 82 % (50-85); Total Cells Counted 100
[2021-06-14 06:37] LABS: Hypochromasia Slight; Microcytosis 1+; Ovalocytes Slight; Tear Drop Cells Slight
[2021-06-14 06:38] LABS: Platelet Estimate Decreased
[2021-06-14] MEDS: amLODIPine 5 MG TABLET PO SCH (08:33)
[2021-06-14] MEDS: PANTOPRAZOLE 40 MG TABLET PO SCH (08:33)
[2021-06-14] MEDS: METOPROLOL TARTRATE 25 MG TABLET PO SCH ×2 (08:33→21:40)
[2021-06-14] MEDS: predniSONE 20 MG TABLET PO SCH (08:33)
[2021-06-14] MEDS: levETIRAcetam 500 MG TABLET PO SCH ×2 (08:33→21:39)
[2021-06-14] MEDS: MYCOPHENOLATE MOFETIL 250 MG CAPSULE PO SCH (08:33)
[2021-06-14] MEDS: HYDROXYCHLOROQUINE 200 MG TABLET PO SCH ×2 (08:34→21:40)
[2021-06-14] MEDS: FUROSEMIDE 100 MG/10 ML VIAL IV SCH ×2 (08:34→16:39)
[2021-06-14] MEDS: metOLazone 5 MG TABLET PO SCH (08:34)
[2021-06-14] MEDS: POTASSIUM BICARB EFFERVESCENT 20 MEQ TAB.EFF PO SCH (11:35)
[2021-06-14] MEDS: DOCUSATE SODIUM 100 MG CAPSULE PO SCH (11:35)
[2021-06-14] MEDS ORDERED: POTASSIUM BICARB EFFERVESCENT 20 MEQ TAB.EFF PO SCH (15:00)
[2021-06-14] MEDS: POTASSIUM CHLORIDE 10 MEQ TABLET PO SCH ×2 (16:39→21:40)
[2021-06-15] MEDS: ALBUTEROL/IPRATROPIUM 3 ML NEB RESP TX SCH ×4 (00:55→21:43)
[2021-06-15] MEDS: MYCOPHENOLATE MOFETIL 250 MG CAPSULE PO SCH ×3 (01:43→21:21)
[2021-06-15 05:04] LABS: Basophils % 0.2 % (0.0-0.8); Eosinophils % 0.2 % (0.00-10.9); Hematocrit 27.2 VOL% (35.7-47.0); Immature Granulocytes % 6.2 %; Immature Granulocytes Absolute 0.75 #; Lymphocytes # 0.9 10*3/uL (1.4-4.0); Lymphocytes % 7.5 % (21.3-54.2); Mean Corpuscular HGB Conc 32.7 GM/DL (32-36); Mean Corpuscular Volume 89.5 FL (87-102); Mean Platelet Volume 9.8 FL (9.6-12.0); Monocytes % 9.6 % (1.7-12.7); Neutrophils % 76.3 % (38.7-73.9); Platelet Count 80 T/CUMM (130-400)
[2021-06-15 05:06] LABS: Hemoglobin 8.9 GM/DL (12.0-16.0); Red Blood Count 3.04 MC/CUMM (3.8-5.5)
[2021-06-15 05:27] LABS: Eosinophils 1 % (0-10); Hypochromasia 1+; Lymphocytes 6 % (20-55); Microcytosis 1+; Platelet Estimate Decreased; Segmented Neutrophils 82 % (50-85); Total Cells Counted 100
[2021-06-15 05:31] LABS: Calcium 8.1 MG/DL (8.5-10.1); Osmolality,Calculated 308.1 MOS/KG (273-304); Potassium 3.6 MMOL/L (3.5-5.1)
[2021-06-15] MEDS: FUROSEMIDE 100 MG/10 ML VIAL IV SCH ×2 (08:41→17:20)
[2021-06-15] MEDS: predniSONE 20 MG TABLET PO SCH (08:42)
[2021-06-15] MEDS: POTASSIUM CHLORIDE 10 MEQ TABLET PO SCH ×3 (08:42→21:23)
[2021-06-15] MEDS: PANTOPRAZOLE 40 MG TABLET PO SCH (08:42)
[2021-06-15] MEDS: METOPROLOL TARTRATE 25 MG TABLET PO SCH ×2 (08:43→21:23)
[2021-06-15] MEDS: levETIRAcetam 500 MG TABLET PO SCH ×2 (08:43→21:23)
[2021-06-15] MEDS: metOLazone 5 MG TABLET PO SCH (08:43)
[2021-06-15] MEDS: amLODIPine 5 MG TABLET PO SCH (08:43)
[2021-06-15] MEDS: HYDROXYCHLOROQUINE 200 MG TABLET PO SCH ×2 (08:56→21:23)
[2021-06-15] MEDS: DOCUSATE SODIUM 100 MG CAPSULE PO SCH (13:13)
[2021-06-16] MEDS: ALBUTEROL/IPRATROPIUM 3 ML NEB RESP TX SCH ×2 (02:37→07:30)
[2021-06-16 05:09] LABS: Basophils % 0.3 % (0.0-0.8); Eosinophils % 0.3 % (0.00-10.9); Hematocrit 28.4 VOL% (35.7-47.0); Hemoglobin 9.1 GM/DL (12.0-16.0); Immature Granulocytes % 6.1 %; Immature Granulocytes Absolute 0.72 #; Lymphocytes # 1.1 10*3/uL (1.4-4.0); Lymphocytes % 9.4 % (21.3-54.2); Mean Corpuscular Volume 90.2 FL (87-102); Mean Platelet Volume 9.8 FL (9.6-12.0); Monocytes % 10.6 % (1.7-12.7); Neutrophils % 73.3 % (38.7-73.9); Platelet Count 89 T/CUMM (130-400); Red Blood Count 3.15 MC/CUMM (3.8-5.5); Red Cell Distribution Width 14.2 % (9.3-17.3); White Blood Count 11.9 T/CUMM (4-12)
[2021-06-16 05:45] LABS: Hypochromasia Slight; Lymphocytes 13 % (20-55); Platelet Estimate Decreased; Segmented Neutrophils 78 % (50-85); Total Cells Counted 100
[2021-06-16 05:46] LABS: Calcium 8.2 MG/DL (8.5-10.1); Potassium 3.9 MMOL/L (3.5-5.1)
[2021-06-16 07:50] VITALS: BP 139/91
[2021-06-16] MEDS: metOLazone 5 MG TABLET PO SCH (12:01)
[2021-06-16] MEDS: METOPROLOL TARTRATE 25 MG TABLET PO SCH (12:01)
[2021-06-16] MEDS: PANTOPRAZOLE 40 MG TABLET PO SCH (12:01)
[2021-06-16] MEDS: levETIRAcetam 500 MG TABLET PO SCH (12:01)
[2021-06-16] MEDS: predniSONE 20 MG TABLET PO SCH (12:01)
[2021-06-16] MEDS: DOCUSATE SODIUM 100 MG CAPSULE PO SCH (12:02)
[2021-06-16] MEDS: POTASSIUM CHLORIDE 10 MEQ TABLET PO SCH (12:02)
[2021-06-16] MEDS: HYDROXYCHLOROQUINE 200 MG TABLET PO SCH (12:03)
[2021-06-16] MEDS: amLODIPine 5 MG TABLET PO SCH (12:03)
[2021-06-16] MEDS: FUROSEMIDE 100 MG/10 ML VIAL IV SCH (12:04)
[2021-06-16] MEDS: MYCOPHENOLATE MOFETIL 250 MG CAPSULE PO SCH (13:18)
== END 2021-06-16 13:50 | disposition home or self-care (01) | DRG 546 ==
LOC: N.ED 13:40 → SUATTDRO 19:56 → N.EDINP 19:56 → N.5E 20:32
PROVIDERS: ADMIT Internal Medicine; ATTEND Internal Medicine